=== PATIENT | male | born 1955 | race Caucasian/White ===

== ENCOUNTER 2017-02-10 11:11 | Inpatient (IN) | payer SELFPAY ==
[~2017-02-10] VITALS: Ht 182.9 cm; Wt 165.6 kg
[2017-02-10] MEDS ORDERED: PANTOPRAZOLE IV PUSH 40 MG VIAL. IVP ONE (12:45)
--- NOTE | 2017-02-10 12:51 | ED.ADGEN ---
Past Medical History Past Medical History: Anemia, COPD, Depression, Diabetes-Type II, GERD, Hypertension, Other Additional Past Medical Histor: lymphedema Past Surgical History: Knee Replacement, Other Additional Past Surgical Histo: L rotator cuff, L wrist x2, L knee Alcohol Use: None Drug Use: None Adult General Chief Complaint Chief Complaint: GI PROBLEM HPI HPI Patient is a 61 year old man, history of hypertension, diabetes mellitus, morbid obesity, COPD, GERD, hemorrhoids, who presents to the emergency department with a report of coffee-ground emesis and blood in stool. Patient states had 3 episodes of vomiting today, which appeared coffee ground-like in nature, and patient was sent to the ED for evaluation. He states he has never had coffee-ground emesis or any upper GI bleeding as far as he is aware although he does have a history of ulcers for previous evaluation. Patient states that he had hemorrhoid surgery 3 years ago, and occasionally will note blood in his stool. He states there is blood in his stool currently, he describes it is a dark red color, denies any black or tarry stools. Patient states he is experiencing some epigastric pain, denies any nausea currently, any chest pain or shortness of breath, any fevers or chills, any weakness numbness or tingling, any lightheadedness or dizziness. No injuries. Review of Systems Review of Systems Constitutional: Denies fever or chills. [] Eyes: Denies change in visual acuity. [] HENT: Denies nasal congestion or sore throat. [] Respiratory: Denies cough or shortness of breath. [] Cardiovascular: Denies chest pain or edema. [] GI: Epigastric abdominal pain, with vomiting, dark coffee ground emesis 3 this morning, dark red blood in stool. : Denies dysuria. [] Musculoskeletal: Denies back pain or joint pain. [] Integument: Denies rash. [] Neurologic: Denies headache, focal weakness or sensory changes. [] Endocrine: Denies polyuria or polydipsia. [] Lymphatic: Denies swollen glands. [] Psychiatric: Denies depression or anxiety. [] Current Medications Current Medications Current Medications Medications (Trade) Dose Ordered Sig/Stephen Start Time Stop Time Status Last Admin Dose Admin Ceftriaxone Sodium (Rocephin 1gm Ivpb For Omni) 50 ml @ 100 mls/hr 1X ONCE 02/10/17 15:00 02/10/17 15:29 DC 02/10/17 16:06 100 MLS/HR Info 1 each 1 each PRN DAILY PRN 02/10/17 14:00 02/12/17 13:59 Iohexol (Omnipaque 300 Mg/ml) 75 ml 1X ONCE 02/10/17 14:00 02/10/17 14:01 DC 02/10/17 14:11 75 ML Octreotide Acetate 100 mcg 100 mcg 1X ONCE 02/10/17 15:00 02/10/17 15:10 DC 02/10/17 16:34 100 MCG Octreotide Acetate/Sodium Chloride (Sandostatin/Iv Sodium Chloride 0.9% 100ml) 101 ml @ 0 mls/hr CONT PRN 02/10/17 15:00 02/10/17 16:40 5 MLS/HR Pantoprazole Sodium (Protonix Vial) 80 mg 1X ONCE 02/10/17 12:45 02/10/17 12:46 DC 02/10/17 13:43 80 MG Pantoprazole Sodium/Sodium Chloride (Protonix Iv/Iv Sodium Chloride 0.9% 100ml) 100 ml @ 10 mls/hr Q10H 02/10/17 12:45 02/10/17 13:43 10 MLS/HR Allergies Allergies Allergies Coded Allergies Type Severity Reaction Last Updated Verified codeine Allergy Intermediate Hives 02/10/17 Yes Physical Exam Physical Exam Constitutional: Well developed, well nourished, no acute distress, non-toxic appearance. Nasal cannula in place. [] HENT: Normocephalic, atraumatic, bilateral external ears normal, oropharynx moist, no oral exudates, nose normal. [] Eyes: PERRLA, EOMI, conjunctiva normal, no discharge. [] Neck: Normal range of motion, no tenderness, supple, no stridor. [] Cardiovascular:Heart rate regular rhythm, no murmur, S1, S2, no rubs or gallops. [] Lungs & Thorax: Diminished breath sounds at bases bilaterally, examination limited secondary to body habitus., no wheezing [, rhonchi or rales identified. No chest or crepitus or tenderness.] Abdomen: Bowel sounds normal, obese, soft, mild tenderness all patient in the epigastric region, no rebound, rigidity, no guarding,, no masses, no pulsatile masses. [] Skin: Warm, dry, no erythema, no rash. [] Back: No tenderness, no CVA tenderness. [] Extremities: No tenderness, no cyanosis, no clubbing, ROM intact, no edema. Negative Homans sign. [] Neurologic: Alert and oriented X 3, normal motor function, normal sensory function, no focal deficits noted. [] Psychologic: Affect normal, judgement normal, mood normal. [] Rectal examination: Patient noted to have external hemorrhoids, dark red blood noted at rectum, and no evidence of active bleeding, no masses palpated, patient with large amount of dark red blood on glove after internal examination. No lesions or Current Patient Data Vital Signs Vital Signs Date Time Temp Pulse Resp B/P Pulse Ox O2 Delivery O2 Flow Rate FiO2 02/10/17 14:48 78 112/65 96 Nasal Cannula 4 02/10/17 11:20 97.9 17 97.9 Lab Values Laboratory Tests Test 02/10/17 12:40 02/10/17 13:18 Stool Occult Blood Positive (NEG) White Blood Count 7.9x10^3/uL (4.0-11.0) Red Blood Count 3.57x10^6/uL (4.30-5.70) L Hemoglobin 12.6g/dL (13.0-17.5) L Hematocrit 36.3% (39.0-53.0) L Mean Corpuscular Volume 102fL (79-100) H Mean Corpuscular Hemoglobin 35pg (25-35) Mean Corpuscular Hemoglobin Concent 35g/dL (31-37) Red Cell Distribution Width 14.6% (11.5-14.5) H Platelet Count 176x10^3/uL (140-400) Neutrophils (%) (Auto) 56% (31-73) Lymphocytes (%) (Auto) 31% (24-48) Monocytes (%) (Auto) 11% (0-9) H Eosinophils (%) (Auto) 1% (0-3) Basophils (%) (Auto) 1% (0-3) Neutrophils # (Auto) 4.4x10^3uL (1.8-7.7) Lymphocytes # (Auto) 2.4x10^3/uL (1.0-4.8) Monocytes # (Auto) 0.9x10^3/uL (0.0-1.1) Eosinophils # (Auto) 0.1x10^3/uL (0.0-0.7) Basophils # (Auto) 0.1x10^3/uL (0.0-0.2) Prothrombin Time 16.9SEC (11.7-14.0) H Prothrombin Time INR 1.5 (0.8-1.1) H PTT 36SEC (24-38) Sodium Level 141mmol/L (136-145) Potassium Level 5.1mmol/L (3.5-5.1) Chloride Level 103mmol/L (98-107) Carbon Dioxide Level 34mmol/L (21-32) H Anion Gap 4 (6-14) L Blood Urea Nitrogen 13mg/dL (8-26) Creatinine 0.7mg/dL (0.7-1.3) Estimated GFR (Cockcroft-Gault) 114.3 BUN/Creatinine Ratio 19 (6-20) Glucose Level 123mg/dL (70-99) H Lactic Acid Level 2.3mmol/L (0.4-2.0) H Calcium Level 8.5mg/dL (8.5-10.1) Total Bilirubin 1.8mg/dL (0.2-1.0) H Aspartate Amino Transferase (AST) 85U/L (15-37) H Alanine Aminotransferase (ALT) 52U/L (16-63) Alkaline Phosphatase 292U/L (46-116) H Troponin I Quantitative 0.018ng/mL (0.000-0.055) Total Protein 6.9g/dL (6.4-8.2) Albumin 2.4g/dL (3.4-5.0) L Albumin/Globulin Ratio 0.5 (1.0-1.7) L Laboratory Tests 02/10/17 13:18 Laboratory Tests 02/10/17 13:18 EKG EKG EC: Sinus rhythm, heart rate 83 beats/minute, left axis deviation, left anterior fascicular block with a right bundle-branch block noted, contour abnormalities noted in the anterior septal leads, QTc of 424, OH of 144, QRS of 132, abnormal ECG as stated, does not meet STEMI criteria. As interpreted by me. Radiology/Procedures Radiology/Procedures [] [facility] [address] [place] [address] IMAGING REPORT Signed PATIENT: GRIS RESENDIZ ACCOUNT: [id number] : 1955 LOCATION: ER AGE: 61 SEX: M EXAM STATUS: REG ER ORD. PHYSICIAN: KAT HUTSON DO REASON: Vomiting PROCEDURE: CHEST AP ONLY AP portable chest radiograph 02/10/2017 Clinical History: Unexplained vomiting. An AP portable erect digital radiograph of the chest was obtained. No previous studies are available for comparison. The cardiac silhouette is mild to moderately enlarged. The thoracic aorta is tortuous. Prominence of the pulmonary vasculature is seen suggesting mild CHF. Linear bands of subsegmental atelectasis are seen involving the right lung. No pneumothorax or large pleural effusion is seen. Degenerative changes are seen involving the thoracic spine and the right shoulder. Impression: Findings are seen suggesting mild CHF. DICTATED and SIGNED BY: NITHIN MONROY MD DATE: 02/10/17 1303 CC: KAT HUTSON DO; SOLOMON BARAJAS MD ~ Impressions: [address] [address] IMAGING REPORT Signed PATIENT: GRIS RESENDIZ ACCOUNT: [id number] : 1955 LOCATION: ER AGE: 61 SEX: M EXAM STATUS: REG ER ORD. PHYSICIAN: KAT HUTSON DO REASON: abd pain/coffee ground emesis PROCEDURE: CT ABD PELV W/ IV CONTRST ONLY CT of the abdomen and pelvis with contrast, 02/10/2017: History: Abdominal pain, coffee-ground emesis Multidetector CT imaging was performed following an IV bolus injection of iodinated contrast material. No oral contrast material was administered for this study. There is a small amount of right-sided pleural fluid. There is moderate underlying atelectasis posteriorly in the right lower lobe. There is minimal atelectasis in the posterior costophrenic angle on the left. There are minimal patchy groundglass opacities in the lung bases possibly representing mild pulmonary edema. Coronary artery calcifications are present. The hepatic margins are irregular raising the possibility of cirrhosis. No hepatic mass is seen. The gallbladder is unremarkable. No pancreatic mass is evident. The spleen is at the upper limits of normal in size measuring 15.9 cm in length. There is mild bilateral renal cortical scarring. The kidneys show no evidence of obstruction. The left adrenal gland is enlarged measuring 5 cm in greatest dimension. It is of medium density on these postcontrast scans, similar to the right adrenal gland. There is moderate aortoiliac calcific plaquing without evidence of aneurysm. No abdominal or pelvic adenopathy is seen. There is a small amount of free fluid in the abdomen and pelvis. Fluid extends into a left inguinal hernia. No bowel herniation is evident. Fluid and streaky edema in the mesentery is most prominent in the right paracolic gutter region, probably due to patient positioning. The bowel loops are not dilated. No free air is evident in the abdomen or pelvis. IMPRESSION: 1. Small volume of ascites. 2. Mild hepatic contour irregularity suggesting cirrhosis. 3. Borderline splenomegaly. 4. Nonspecific left adrenal enlargement. 5. Left inguinal hernia containing ascites with no current bowel herniation. 6. Small right pleural effusion with moderate right lower lobe atelectasis. 7. Coronary artery disease. PQRS Compliance Statement: One or more of the following individualized dose reduction techniques were utilized for this examination: 1. Automated exposure control 2. Adjustment of the mA and/or kV according to patient size 3. Use of iterative reconstruction technique DICTATED and SIGNED BY: NIKOLAI GARAY MD DATE: 02/10/17 6647 CC: KAT HUTSON DO; SOLOMON BARAJAS MD ~ Course & Med Decision Making Course & Med Decision Making Pertinent Labs and Imaging studies reviewed. (See chart for details) Patient with no further vomiting in the emergency department, hemoglobin of 12.6 , platelet count of 176, patient's heart rate is in the 70s, blood pressure 120s over 80s, no indication for transfusion at this time. Patient initiated on Protonix bolus of Protonix drip, after CT revealed evidence of cirrhosis, patient also received octreotide bolus of octreotide drip, free fluid noted, most consistent with ascites, no evidence of free air or bowel abnormality, findings were discussed with Dr. Liriano of general surgery who will review imaging. Findings as above discussed with Dr. Lane of GI, although patient is a limited historian, and denied any history of cirrhosis, findings on CT with GI bleeding concern for possible variceal bleeding, patient as stated has protonic and octreotide infusing, will continue at this time, patient be evaluated by Dr. Lane. Findings as above discussed with Dr. Gutierrez of internal medicine, accepted to his service as a full admission to the medical telemetry floor, consultations as stated, bridge orders entered per discussion. Dragon Disclaimer Dragon Disclaimer This electronic medical record was generated, in whole or in part, using a voice recognition dictation system. Departure Impression: Primary Impression: GI bleed Disposition: ADMITTED INPATIENT Admitting Physician: Juan Carlos Gutierrez Condition: IMPROVED KAT HUTSON DO Feb 10, 2017 12:51
--- NOTE | 2017-02-10 13:08 | RAD ---
AP portable chest radiograph 02/10/2017 Clinical History: Unexplained vomiting. An AP portable erect digital radiograph of the chest was obtained. No previous studies are available for comparison. The cardiac silhouette is mild to moderately enlarged. The thoracic aorta is tortuous. Prominence of the pulmonary vasculature is seen suggesting mild CHF. Linear bands of subsegmental atelectasis are seen involving the right lung. No pneumothorax or large pleural effusion is seen. Degenerative changes are seen involving the thoracic spine and the right shoulder. Impression: Findings are seen suggesting mild CHF.
[2017-02-10 13:11] LABS: NEG OBC FOB NEG; POS OBC FOB POS
[2017-02-10 13:32] LABS: BASO # 0.1 x10^3/uL (0.0-0.2); BASO % 1 % (0-3); EOS % 1 % (0-3); HEMATOCRIT 36.3 % (39.0-53.0); HEMOGLOBIN 12.6 g/dL (13.0-17.5); LYMPH # 2.4 x10^3/uL (1.0-4.8); LYMPH % 31 % (24-48); MEAN CORPUSCULAR HEMOGLOBIN 35 pg (25-35); MEAN CORPUSCULAR HGB CONC 35 g/dL (31-37); MEAN CORPUSCULAR VOLUME 102 fL (79-100); MONO % 11 % (0-9); NEUT % 56 % (31-73); PLATELET COUNT 176 x10^3/uL (140-400); RED BLOOD COUNT 3.57 x10^6/uL (4.30-5.70); RED CELL DISTRIBUTION WIDTH 14.6 % (11.5-14.5); WHITE BLOOD COUNT 7.9 x10^3/uL (4.0-11.0)
[2017-02-10] MEDS: PANTOPRAZOLE SODIUM IV 80 MG in IV NORMAL SALINE 100ML 100 ML IV SCH ×2 (13:43→22:45)
[2017-02-10 13:46] LABS: CALCIUM 8.5 mg/dL (8.5-10.1); CREATININE 0.7 mg/dL (0.7-1.3); GFR 114.3; POTASSIUM 5.1 mmol/L (3.5-5.1)
[2017-02-10 13:49] LABS: INR 1.5 (0.8-1.1); PROTHROMBIN TIME PATIENT 16.9 SEC (11.7-14.0)
[2017-02-10 13:59] LABS: ALBUMIN 2.4 g/dL (3.4-5.0); ALBUMIN/GLOBULIN RATIO 0.5 (1.0-1.7); TOTAL BILIRUBIN 1.8 mg/dL (0.2-1.0); TOTAL PROTEIN 6.9 g/dL (6.4-8.2)
[2017-02-10] MEDS ORDERED: CONTRAST GIVEN MC PRN (14:00)
[2017-02-10] MEDS ORDERED: IOHEXOL 300 MG/ML 75 ML VIAL IV ONE (14:00)
--- NOTE | 2017-02-10 14:50 | RAD ---
CT of the abdomen and pelvis with contrast, 02/10/2017: History: Abdominal pain, coffee-ground emesis Multidetector CT imaging was performed following an IV bolus injection of iodinated contrast material. No oral contrast material was administered for this study. There is a small amount of right-sided pleural fluid. There is moderate underlying atelectasis posteriorly in the right lower lobe. There is minimal atelectasis in the posterior costophrenic angle on the left. There are minimal patchy groundglass opacities in the lung bases possibly representing mild pulmonary edema. Coronary artery calcifications are present. The hepatic margins are irregular raising the possibility of cirrhosis. No hepatic mass is seen. The gallbladder is unremarkable. No pancreatic mass is evident. The spleen is at the upper limits of normal in size measuring 15.9 cm in length. There is mild bilateral renal cortical scarring. The kidneys show no evidence of obstruction. The left adrenal gland is enlarged measuring 5 cm in greatest dimension. It is of medium density on these postcontrast scans, similar to the right adrenal gland. There is moderate aortoiliac calcific plaquing without evidence of aneurysm. No abdominal or pelvic adenopathy is seen. There is a small amount of free fluid in the abdomen and pelvis. Fluid extends into a left inguinal hernia. No bowel herniation is evident. Fluid and streaky edema in the mesentery is most prominent in the right paracolic gutter region, probably due to patient positioning. The bowel loops are not dilated. No free air is evident in the abdomen or pelvis. IMPRESSION: 1. Small volume of ascites. 2. Mild hepatic contour irregularity suggesting cirrhosis. 3. Borderline splenomegaly. 4. Nonspecific left adrenal enlargement. 5. Left inguinal hernia containing ascites with no current bowel herniation. 6. Small right pleural effusion with moderate right lower lobe atelectasis. 7. Coronary artery disease. PQRS Compliance Statement: One or more of the following individualized dose reduction techniques were utilized for this examination: 1. Automated exposure control 2. Adjustment of the mA and/or kV according to patient size 3. Use of iterative reconstruction technique
[2017-02-10] MEDS ORDERED: OCTREOTIDE 100 MCG/ML VIAL IV ONE (15:00)
[2017-02-10] MEDS ORDERED: CEFTRIAXONE 1GM IVPB FOR OMNI 50 ML IV ONE (15:00)
[2017-02-10] MEDS ORDERED: OCTREOTIDE 500 MCG in IV NORMAL SALINE 100ML 100 ML IV PRN (15:00)
--- NOTE | 2017-02-10 15:00 | EKG ---
[facility] [address] [place] [address] Test Date: 2017-02-10 Test Time: 13:40:26 Pat Name: GRIS RESENDIZ Department: Room: Gender: M Maintenance Engineer: : 1955 Requested By: KAT HUTSON Order Number: [id number] Reading MD: Measurements Intervals [place] Rate: 83 P: 0 MT: 144 QRS: -56 QRSD: 132 T: -4 QT: 360 QTc: 424 Interpretive Statements SINUS RHYTHM ABNORMAL LEFT AXIS DEVIATION LEFT ANTERIOR FASCICULAR BLOCK RIGHT BUNDLE BRANCH BLOCK BIFASCICULAR BLOCK RVH WITH REPOLARIZATION ABNORMALITY QRS(T) CONTOUR ABNORMALITY CONSIDER ANTEROSEPTAL MYOCARDIAL DAMAGE RI6.01 No previous ECG available for comparison
[2017-02-10] MEDS ORDERED: DEXTROSE 50% 25 GM / 50ML DISP.SYRIN. IV PRN (15:45)
[2017-02-10] MEDS ORDERED: FENTANYL PF 100 MCG/2 ML VIAL. IV PRN (15:45)
[2017-02-10] MEDS ORDERED: ONDANSETRON PF 4 MG/2 ML VIAL. IV PRN (15:45)
[2017-02-10] MEDS: IPRATRPIUM/ALBUTEROL 0.5/2.5MG 3 ML NEBU. NEB SCH ×2 (16:00→20:00)
--- NOTE | 2017-02-10 16:56 | ACF ---
Admission Forms Criteria GASTROINTESTINAL BLEEDING Clinical Indications for Inpatient Care (Place 'X' for any and all applicable criteria): Ongoing inpatient care may be indicated for gastrointestinal bleeding with ANY ONE of the following (4)(20)(21)(22)(23)(24): [X]I. Active bleeding (eg, fresh voluminous blood in emesis or nasogastric aspirate, or per rectum) [ ]II. Hemodynamic instability [ ]III. Anticoagulation therapy or coagulopathy ((eg, advanced liver disease, irreversible anticoagulation) [ ]IV. Ischemic colitis (22) [ ]V. Endoscopy showing arterial bleeding, adherent clot, nonbleeding visible vessel, varices, flat red spots, ulcer size greater than 2 cm, or portal hypertensive gastropathy [ ]. High-risk low platelet count [ ]VII. Anemia requiring inpatient care as indicated by ANY ONE of the following a)[ ] Cognitive impairment b)[ ] Syncope c)[ ] Heart failure d)[ ] Chest pain e)[ ] Dyspnea f)[ ] Other findings suggesting inadequate perfusion (eg, peripheral or myocardial ischemia, end organ dysfunction) [ ]VIII. High-risk low platelet count [X]IX. Suspected variceal cause of bleeding as indicated by ANY ONE of the following(27)(28): a)[ ] Known varices b)[ ] Hepatomegaly or splenomegaly c)[X] Ascites d)[ ] Jaundice or scleral icterus e)[ ] History of liver disease (eg, cirrhosis) f)[ ] Physical findings of portal hypertension (eg, caput medusa) g)[ ] Comorbid disorder indicating risk for portal vein thrombosis (eg , abdominal surgery, sepsis, shock, exchange transfusion, prior umbilical vein catheterization) Extended stay may be needed until ALL of the following are present(20)(38)(47): [ ]a) Hemodynamic stability [ ]b) No evidence of active bleeding (eg, stable Hematocrit) [ ]c) Platelet count, prothrombin time, and partial thromboplastin time acceptable for next level of care [ ]d) Surgical or other acute intervention not needed [ ]e) Oral hydration and diet tolerated The original [facility] content created by Raina Nguyen has been revised. The portions of the content which have been revised are identified through the use of italic text or in bold, and Raina Nguyen has neither reviewed nor approved the modified material. All other unmodified content is copyright [facility]. Please see references footnoted in the original [facility] edition 2016 Admission Criteria Met?: Yes NILS BOWMAN Feb 10, 2017 16:56
[2017-02-10] MEDS: INSULIN ASPART 300 UNITS/3 ML INSULN.PEN SQ SCH (17:00)
--- NOTE | 2017-02-10 18:08 | PDOC ---
G I PROGRESS NOTE Reason for Follow-up Coffee ground emesis Subjective Nauseated Physical Exam Lungs decreased BS CV S1 S2 ABD +BS, soft, nontender Review of Relevant I have reviewed the following items sandie (where applicable) has been applied. Labs Laboratory Tests Test 02/10/17 12:40 02/10/17 13:18 02/10/17 16:00 Stool Occult Blood Positive (NEG) White Blood Count 7.9x10^3/uL (4.0-11.0) Red Blood Count 3.57x10^6/uL (4.30-5.70) Hemoglobin 12.6g/dL (13.0-17.5) Hematocrit 36.3% (39.0-53.0) Mean Corpuscular Volume 102fL (79-100) Mean Corpuscular Hemoglobin 35pg (25-35) Mean Corpuscular Hemoglobin Concent 35g/dL (31-37) Red Cell Distribution Width 14.6% (11.5-14.5) Platelet Count 176x10^3/uL (140-400) Neutrophils (%) (Auto) 56% (31-73) Lymphocytes (%) (Auto) 31% (24-48) Monocytes (%) (Auto) 11% (0-9) Eosinophils (%) (Auto) 1% (0-3) Basophils (%) (Auto) 1% (0-3) Neutrophils # (Auto) 4.4x10^3uL (1.8-7.7) Lymphocytes # (Auto) 2.4x10^3/uL (1.0-4.8) Monocytes # (Auto) 0.9x10^3/uL (0.0-1.1) Eosinophils # (Auto) 0.1x10^3/uL (0.0-0.7) Basophils # (Auto) 0.1x10^3/uL (0.0-0.2) Prothrombin Time 16.9SEC (11.7-14.0) Prothromb Time International Ratio 1.5 (0.8-1.1) Activated Partial Thromboplast Time 36SEC (24-38) Sodium Level 141mmol/L (136-145) Potassium Level 5.1mmol/L (3.5-5.1) Chloride Level 103mmol/L (98-107) Carbon Dioxide Level 34mmol/L (21-32) Anion Gap 4 (6-14) Blood Urea Nitrogen 13mg/dL (8-26) Creatinine 0.7mg/dL (0.7-1.3) Estimated GFR (Cockcroft-Gault) 114.3 BUN/Creatinine Ratio 19 (6-20) Glucose Level 123mg/dL (70-99) Lactic Acid Level 2.3mmol/L (0.4-2.0) 2.3mmol/L (0.4-2.0) Calcium Level 8.5mg/dL (8.5-10.1) Total Bilirubin 1.8mg/dL (0.2-1.0) Aspartate Amino Transf (AST/SGOT) 85U/L (15-37) Alanine Aminotransferase (ALT/SGPT) 52U/L (16-63) Alkaline Phosphatase 292U/L (46-116) Troponin I Quantitative 0.018ng/mL (0.000-0.055) Total Protein 6.9g/dL (6.4-8.2) Albumin 2.4g/dL (3.4-5.0) Albumin/Globulin Ratio 0.5 (1.0-1.7) Laboratory Tests Test 02/10/17 12:40 02/10/17 13:18 02/10/17 16:00 Stool Occult Blood Positive (NEG) White Blood Count 7.9x10^3/uL (4.0-11.0) Red Blood Count 3.57x10^6/uL (4.30-5.70) Hemoglobin 12.6g/dL (13.0-17.5) Hematocrit 36.3% (39.0-53.0) Mean Corpuscular Volume 102fL (79-100) Mean Corpuscular Hemoglobin 35pg (25-35) Mean Corpuscular Hemoglobin Concent 35g/dL (31-37) Red Cell Distribution Width 14.6% (11.5-14.5) Platelet Count 176x10^3/uL (140-400) Neutrophils (%) (Auto) 56% (31-73) Lymphocytes (%) (Auto) 31% (24-48) Monocytes (%) (Auto) 11% (0-9) Eosinophils (%) (Auto) 1% (0-3) Basophils (%) (Auto) 1% (0-3) Neutrophils # (Auto) 4.4x10^3uL (1.8-7.7) Lymphocytes # (Auto) 2.4x10^3/uL (1.0-4.8) Monocytes # (Auto) 0.9x10^3/uL (0.0-1.1) Eosinophils # (Auto) 0.1x10^3/uL (0.0-0.7) Basophils # (Auto) 0.1x10^3/uL (0.0-0.2) Prothrombin Time 16.9SEC (11.7-14.0) Prothromb Time International Ratio 1.5 (0.8-1.1) Activated Partial Thromboplast Time 36SEC (24-38) Sodium Level 141mmol/L (136-145) Potassium Level 5.1mmol/L (3.5-5.1) Chloride Level 103mmol/L (98-107) Carbon Dioxide Level 34mmol/L (21-32) Anion Gap 4 (6-14) Blood Urea Nitrogen 13mg/dL (8-26) Creatinine 0.7mg/dL (0.7-1.3) Estimated GFR (Cockcroft-Gault) 114.3 BUN/Creatinine Ratio 19 (6-20) Glucose Level 123mg/dL (70-99) Lactic Acid Level 2.3mmol/L (0.4-2.0) 2.3mmol/L (0.4-2.0) Calcium Level 8.5mg/dL (8.5-10.1) Total Bilirubin 1.8mg/dL (0.2-1.0) Aspartate Amino Transf (AST/SGOT) 85U/L (15-37) Alanine Aminotransferase (ALT/SGPT) 52U/L (16-63) Alkaline Phosphatase 292U/L (46-116) Troponin I Quantitative 0.018ng/mL (0.000-0.055) Total Protein 6.9g/dL (6.4-8.2) Albumin 2.4g/dL (3.4-5.0) Albumin/Globulin Ratio 0.5 (1.0-1.7) Medications Current Medications Pantoprazole Sodium/Sodium Chloride (Protonix Iv/Iv Sodium Chloride 0.9% 100ml) 100 ml @ 10 mls/hr Q10H IV Last administered on 02/10/17 13:43; Start at 12:45 Pantoprazole Sodium (Protonix Vial) 80 mg 1X ONCE IVP Last administered on 13:43; Start 02/10/17 at 12:45; Stop 02/10/17 at 12:46; Status DC Iohexol (Omnipaque 300 Mg/ml) 75 ml 1X ONCE IV Last administered on 02/10/17 14:11; Start 02/10/17 at 14:00; Stop 02/10/17 at 14:01; Status DC Info 1 each 1 each PRN DAILY PRN MC SEE COMMENTS; Start 02/10/17 at 14:00; Stop 02/12/17 at 13:59 Octreotide Acetate/Sodium Chloride (Sandostatin/Iv Sodium Chloride 0.9% 100ml) 101 ml @ 0 mls/hr CONT PRN IV SEE I/O RECORD Last administered on 02/10/17 16: 40; Start 02/10/17 at 15:00 Octreotide Acetate 100 mcg 100 mcg 1X ONCE IV Last administered on 02/10/17 16:34; Start 02/10/17 at 15:00; Stop 02/10/17 at 15:10; Status DC Ceftriaxone Sodium (Rocephin 1gm Ivpb For Omni) 50 ml @ 100 mls/hr 1X ONCE IV Last administered on 02/10/17 16:06; Start 02/10/17 at 15:00; Stop 02/10/17 at 15:29; Status DC Ondansetron HCl (Zofran) 4 mg PRN Q8HRS PRN IV NAUSEA/VOMITING; Start 02/10/17 at 15:45; Stop 02/11/17 at 15:44 Fentanyl Citrate (Fentanyl 2ml Vial) 50 mcg PRN Q1HR PRN IV PAIN; Start at 15:45; Stop 02/11/17 at 15:44 Albuterol/ Ipratropium (Duoneb) 3 ml RTQID NEB ; Start 02/10/17 at 16:00; Stop 02/11/17 at 15:59 Insulin Aspart (Novolog) 0-5 UNITS TIDWMEALS SQ ; Start 02/10/17 at 17:00 Dextrose (Dextrose 50%-Water Syringe) 12.5 gm PRN Q15MIN PRN IV SEE COMMENTS; Start 02/10/17 at 15:45 Vitals/I & O Vital Sign - Last 24 Hours 02/10/17 02/10/17 02/10/17 02/10/17 11:20 11:54 12:34 12:54 Temp 97.9 97.9 Pulse 82 80 88 88 Resp 17 B/P 124/59 113/55 121/55 122/78 Pulse Ox 95 100 96 97 O2 Delivery Nasal Cannula Nasal Cannula Nasal Cannula Nasal Cannula O2 Flow Rate 4 4 4 4 02/10/17 02/10/17 02/10/17 02/10/17 13:24 13:54 14:18 14:48 Pulse 82 80 85 78 B/P 131/74 122/65 106/53 112/65 Pulse Ox 95 96 96 O2 Delivery Nasal Cannula Nasal Cannula Nasal Cannula O2 Flow Rate 4 4 4 02/10/17 02/10/17 02/10/17 02/10/17 15:18 15:48 16:18 16:35 Pulse 78 80 84 84 B/P 123/64 136/67 156/70 135/63 Pulse Ox 96 96 97 96 O2 Delivery Nasal Cannula Nasal Cannula Nasal Cannula Nasal Cannula O2 Flow Rate 4 4 4 4 Problem List Problems Medical Problems: (1) GI bleed Status: Acute Assessment Hematemesis- etiology to be determined. Differential includes: MW tear, PUD, varices, and/or malignancy. Plan serial cbcs transfusional support PPI therapy EGD in am to further assess. Risks and benefits discussed with patient who is willing to proceed. BLANCA FRANCO MD Feb 10, 2017 18:08
[2017-02-10 18:14] VITALS: BP 122/56
[2017-02-10 19:00] VITALS: BP 124/58
--- NOTE | 2017-02-10 22:19 | HP ---
ADMIT DATE: 02/10/2017 CHIEF COMPLAINT: Nausea, vomiting, hematemesis, hematochezia. HISTORY OF PRESENT ILLNESS: The patient is a pleasant 61-year-old male who resides at a group home. He has cirrhosis, states he used to drink a lot of whiskey and everything else he could get his hands on. Today, he presented with coffee ground emesis and blood in his stool and a CAT scan is showing cirrhosis. I suspect he might have esophageal varices with portal hypertension. I have discussed the case with the ER doctor. We are going to go ahead and admit the patient and consult GI. PAST MEDICAL HISTORY: Cirrhosis, previous alcohol abuse, anemia, COPD, depression, diabetes, GERD, hypertension, lymphoma, knee replacement, left rotator cuff, wrist surgery, knee surgery. ALLERGIES: CODEINE. FAMILY HISTORY: Hypertension. SOCIAL HISTORY: He quit drinking, but used to drink heavily. He quit smoking, but used to smoke heavily. No drugs. MEDICATIONS: Reviewed, please refer to the MRAD. REVIEW OF SYSTEMS: GENERAL: No history of weight change, weakness or fevers. SKIN: No bruising, hair changes or rashes. EYES: No blurred, double or loss of vision. NOSE AND THROAT: No history of nosebleeds, hoarseness or sore throat. HEART: No history of palpitations, chest pain or shortness of breath on exertion. LUNGS: Denies cough, hemoptysis, wheezing or shortness of breath. GASTROINTESTINAL: He complains of nausea. GENITOURINARY: No history of frequency, urgency, hesitancy or nocturia. NEUROLOGIC: Denies history of numbness, tingling, tremor or weakness. PSYCHIATRIC: No history of panic, anxiety or depression. ENDOCRINE: No history of heat or cold intolerance, polyuria or polydipsia. EXTREMITIES: Denies muscle weakness, joint pain, pain on walking or stiffness. PHYSICAL EXAMINATION: VITAL SIGNS: Temperature afebrile, pulse 67, respirations 20, blood pressure 144/92. GENERAL: He is alert, cooperative. HEART: Normal S1, S2. LUNGS: Clear. ABDOMEN: Soft. Decreased bowel sounds, tender. EXTREMITIES: 1+ edema. SKIN: Dry with some excoriations. ENDOCRINE: No thyromegaly. LYMPHATICS: No cervical nodes. HEMATOPOIETIC: No bruising. LABORATORY DATA: White count 8, hemoglobin 12, platelets 176. Electrolytes: Sodium 141, potassium 5.1, chloride 103, bicarbonate 34, BUN 13, creatinine , glucose 123. Troponin 0.018. Alkaline phosphatase 292, AST 85, ALT . ASSESSMENT AND PLAN: Gastrointestinal bleed. I suspect he has cirrhosis from his alcoholism with secondary esophageal varices from portal hypertension. The patient has been admitted. We will monitor his hemoglobin closely. Consult Dr. Lane. IV fluids, IV proton pump inhibitors. We will try to continue his home meds. PROGNOSIS: Guarded. ZHOU GARCIA DO DR: JEROME/vannessa JOB#: [id number] / [id number]
[2017-02-10 23:00] VITALS: BP 127/58
[2017-02-11 03:00] VITALS: BP_SYST 122; BP_SYST 126; BP_DIAS 63; BP_DIAS 71
[2017-02-11 04:48] LABS: BASO # 0.1 x10^3/uL (0.0-0.2); BASO % 1 % (0-3); EOS % 3 % (0-3); HEMATOCRIT 33.1 % (39.0-53.0); HEMOGLOBIN 10.9 g/dL (13.0-17.5); LYMPH # 2.7 x10^3/uL (1.0-4.8); LYMPH % 33 % (24-48); MEAN CORPUSCULAR HEMOGLOBIN 34 pg (25-35); MEAN CORPUSCULAR HGB CONC 33 g/dL (31-37); MEAN CORPUSCULAR VOLUME 105 fL (79-100); MONO % 17 % (0-9); NEUT % 47 % (31-73); PLATELET COUNT 160 x10^3/uL (140-400); RED BLOOD COUNT 3.16 x10^6/uL (4.30-5.70); RED CELL DISTRIBUTION WIDTH 14.7 % (11.5-14.5)
[2017-02-11 05:47] LABS: ALBUMIN 2.2 g/dL (3.4-5.0); ALBUMIN/GLOBULIN RATIO 0.6 (1.0-1.7); CALCIUM 8.5 mg/dL (8.5-10.1); CREATININE 0.7 mg/dL (0.7-1.3); GFR 114.3; POTASSIUM 5.3 mmol/L (3.5-5.1); TOTAL BILIRUBIN 1.7 mg/dL (0.2-1.0); TOTAL PROTEIN 6.1 g/dL (6.4-8.2)
[2017-02-11 07:00] VITALS: BP 126/62
[2017-02-11] MEDS: IPRATRPIUM/ALBUTEROL 0.5/2.5MG 3 ML NEBU. NEB SCH ×3 (07:49→15:19)
[2017-02-11] MEDS: INSULIN ASPART 300 UNITS/3 ML INSULN.PEN SQ SCH ×3 (08:00→17:00)
[2017-02-11] MEDS ORDERED: IV RINGERS,LACTATED 1000ML 1,000 ML IV ONE (10:45)
[2017-02-11] MEDS ORDERED: GLYCOPYRROLATE 1 MG/5 ML VIAL. ONE (11:01)
[2017-02-11] MEDS ORDERED: PROPOFOL 20 ML IV ONE (11:02)
[2017-02-11] MEDS ORDERED: LIDOCAINE 2% PF Vial for OR 5 ML VIAL. ONE (11:02)
--- NOTE | 2017-02-11 11:15 | PDOC4 ---
Operative Note Operative Note EGD Meds propofol per anesthesia Pre-op dx cirrhosis/hematemesis Post-op dx non-erosive gastritis Plan advance diet heme parameters ammonia level hepatitis serologies BLANCA FRANCO MD Feb 11, 2017 11:15
--- NOTE | 2017-02-11 13:56 | PDOC ---
PROGRESS NOTES Chief Complaint Chief Complaint cc: Coffee-ground emesis and blood in stool -CAD Hypertension -COPD -Oxygen use -GERD -DM -Anemia -Cirrhosis -Orthopedic surgeries -Pressure ulcers -Cirrhosis -Lymphoma History of Present Illness History of Present Illness Mr. Love is doing well today and is laying in bed comfortably. He describes having weakness for the past 2-3 days associated with his emesis and blood in his stools. He has very little appetite. He described how he would like to stay in the hospital for a few days. Vitals Vitals Vital Signs Date Time Temp Pulse Resp B/P Pulse Ox O2 Delivery O2 Flow Rate FiO2 02/11/17 12:09 97 Nasal Cannula 5.0 02/11/17 11:33 98.2 114 20 112/54 98.2 Physical Exam General: Alert, Cooperative Heart: Regular rate, Normal S1, Normal S2 Lungs: Clear, Other (No chest retractions) Abdomen: Soft, No tenderness Extremities: No clubbing, No cyanosis Skin: No rashes, No breakdown Labs LABS Laboratory Tests Test 02/10/17 16:00 02/10/17 17:45 02/10/17 21:30 02/11/17 04:05 Lactic Acid Level 2.3mmol/L (0.4-2.0) Hemoglobin 11.9g/dL (13.0-17.5) 10.9g/dL (13.0-17.5) Glucose (Fingerstick) 127mg/dL (70-99) White Blood Count 8.0x10^3/uL (4.0-11.0) Red Blood Count 3.16x10^6/uL (4.30-5.70) Hematocrit 33.1% (39.0-53.0) Mean Corpuscular Volume 105fL (79-100) Mean Corpuscular Hemoglobin 34pg (25-35) Mean Corpuscular Hemoglobin Concent 33g/dL (31-37) Red Cell Distribution Width 14.7% (11.5-14.5) Platelet Count 160x10^3/uL (140-400) Neutrophils (%) (Auto) 47% (31-73) Lymphocytes (%) (Auto) 33% (24-48) Monocytes (%) (Auto) 17% (0-9) Eosinophils (%) (Auto) 3% (0-3) Basophils (%) (Auto) 1% (0-3) Neutrophils # (Auto) 3.8x10^3uL (1.8-7.7) Lymphocytes # (Auto) 2.7x10^3/uL (1.0-4.8) Monocytes # (Auto) 1.3x10^3/uL (0.0-1.1) Eosinophils # (Auto) 0.2x10^3/uL (0.0-0.7) Basophils # (Auto) 0.1x10^3/uL (0.0-0.2) Sodium Level 141mmol/L (136-145) Potassium Level 5.3mmol/L (3.5-5.1) Chloride Level 104mmol/L (98-107) Carbon Dioxide Level 33mmol/L (21-32) Anion Gap 4 (6-14) Blood Urea Nitrogen 18mg/dL (8-26) Creatinine 0.7mg/dL (0.7-1.3) Estimated GFR (Cockcroft-Gault) 114.3 BUN/Creatinine Ratio 26 (6-20) Glucose Level 156mg/dL (70-99) Calcium Level 8.5mg/dL (8.5-10.1) Total Bilirubin 1.7mg/dL (0.2-1.0) Aspartate Amino Transf (AST/SGOT) 79U/L (15-37) Alanine Aminotransferase (ALT/SGPT) 44U/L (16-63) Alkaline Phosphatase 238U/L (46-116) Total Protein 6.1g/dL (6.4-8.2) Albumin 2.2g/dL (3.4-5.0) Albumin/Globulin Ratio 0.6 (1.0-1.7) Test 02/11/17 07:45 02/11/17 12:16 Glucose (Fingerstick) 150mg/dL (70-99) 163mg/dL (70-99) Review of Systems Review of Systems He does not report having any dizziness or lightheadedness. He has not had any more episodes of emesis while at the hospital. Assessment and Plan Assessmemt and Plan Problems Medical Problems: (1) GI bleed Status: Acute Assessment: Mr. Love is a 61 year old male that presented with coffee-ground emesis and blood in his stool. -CAD Hypertension -COPD -Oxygen use -GERD -DM -Anemia -Cirrhosis -Orthopedic surgeries -Pressure ulcers -Cirrhosis -Lymphoma Plan: 1. Pending results EGD 2. Continue breathing treatment 3. Consider PT/OT 4. Recheck labs 5. Appreciate consults from GI Problems: Comment Review of Relevant I have reviewed the following items sandie (where applicable) has been applied. Labs Laboratory Tests Test 02/10/17 12:40 02/10/17 13:18 02/10/17 16:00 02/10/17 17:45 Stool Occult Blood Positive (NEG) White Blood Count 7.9x10^3/uL (4.0-11.0) Red Blood Count 3.57x10^6/uL (4.30-5.70) Hemoglobin 12.6g/dL (13.0-17.5) 11.9g/dL (13.0-17.5) Hematocrit 36.3% (39.0-53.0) Mean Corpuscular Volume 102fL (79-100) Mean Corpuscular Hemoglobin 35pg (25-35) Mean Corpuscular Hemoglobin Concent 35g/dL (31-37) Red Cell Distribution Width 14.6% (11.5-14.5) Platelet Count 176x10^3/uL (140-400) Neutrophils (%) (Auto) 56% (31-73) Lymphocytes (%) (Auto) 31% (24-48) Monocytes (%) (Auto) 11% (0-9) Eosinophils (%) (Auto) 1% (0-3) Basophils (%) (Auto) 1% (0-3) Neutrophils # (Auto) 4.4x10^3uL (1.8-7.7) Lymphocytes # (Auto) 2.4x10^3/uL (1.0-4.8) Monocytes # (Auto) 0.9x10^3/uL (0.0-1.1) Eosinophils # (Auto) 0.1x10^3/uL (0.0-0.7) Basophils # (Auto) 0.1x10^3/uL (0.0-0.2) Prothrombin Time 16.9SEC (11.7-14.0) Prothromb Time International Ratio 1.5 (0.8-1.1) Activated Partial Thromboplast Time 36SEC (24-38) Sodium Level 141mmol/L (136-145) Potassium Level 5.1mmol/L (3.5-5.1) Chloride Level 103mmol/L (98-107) Carbon Dioxide Level 34mmol/L (21-32) Anion Gap 4 (6-14) Blood Urea Nitrogen 13mg/dL (8-26) Creatinine 0.7mg/dL (0.7-1.3) Estimated GFR (Cockcroft-Gault) 114.3 BUN/Creatinine Ratio 19 (6-20) Glucose Level 123mg/dL (70-99) Lactic Acid Level 2.3mmol/L (0.4-2.0) 2.3mmol/L (0.4-2.0) Calcium Level 8.5mg/dL (8.5-10.1) Total Bilirubin 1.8mg/dL (0.2-1.0) Aspartate Amino Transf (AST/SGOT) 85U/L (15-37) Alanine Aminotransferase (ALT/SGPT) 52U/L (16-63) Alkaline Phosphatase 292U/L (46-116) Troponin I Quantitative 0.018ng/mL (0.000-0.055) Total Protein 6.9g/dL (6.4-8.2) Albumin 2.4g/dL (3.4-5.0) Albumin/Globulin Ratio 0.5 (1.0-1.7) Test 02/10/17 21:30 02/11/17 04:05 02/11/17 07:45 02/11/17 12:16 Glucose (Fingerstick) 127mg/dL (70-99) 150mg/dL (70-99) 163mg/dL (70-99) White Blood Count 8.0x10^3/uL (4.0-11.0) Red Blood Count 3.16x10^6/uL (4.30-5.70) Hemoglobin 10.9g/dL (13.0-17.5) Hematocrit 33.1% (39.0-53.0) Mean Corpuscular Volume 105fL (79-100) Mean Corpuscular Hemoglobin 34pg (25-35) Mean Corpuscular Hemoglobin Concent 33g/dL (31-37) Red Cell Distribution Width 14.7% (11.5-14.5) Platelet Count 160x10^3/uL (140-400) Neutrophils (%) (Auto) 47% (31-73) Lymphocytes (%) (Auto) 33% (24-48) Monocytes (%) (Auto) 17% (0-9) Eosinophils (%) (Auto) 3% (0-3) Basophils (%) (Auto) 1% (0-3) Neutrophils # (Auto) 3.8x10^3uL (1.8-7.7) Lymphocytes # (Auto) 2.7x10^3/uL (1.0-4.8) Monocytes # (Auto) 1.3x10^3/uL (0.0-1.1) Eosinophils # (Auto) 0.2x10^3/uL (0.0-0.7) Basophils # (Auto) 0.1x10^3/uL (0.0-0.2) Sodium Level 141mmol/L (136-145) Potassium Level 5.3mmol/L (3.5-5.1) Chloride Level 104mmol/L (98-107) Carbon Dioxide Level 33mmol/L (21-32) Anion Gap 4 (6-14) Blood Urea Nitrogen 18mg/dL (8-26) Creatinine 0.7mg/dL (0.7-1.3) Estimated GFR (Cockcroft-Gault) 114.3 BUN/Creatinine Ratio 26 (6-20) Glucose Level 156mg/dL (70-99) Calcium Level 8.5mg/dL (8.5-10.1) Total Bilirubin 1.7mg/dL (0.2-1.0) Aspartate Amino Transf (AST/SGOT) 79U/L (15-37) Alanine Aminotransferase (ALT/SGPT) 44U/L (16-63) Alkaline Phosphatase 238U/L (46-116) Total Protein 6.1g/dL (6.4-8.2) Albumin 2.2g/dL (3.4-5.0) Albumin/Globulin Ratio 0.6 (1.0-1.7) Laboratory Tests Test 02/10/17 16:00 02/10/17 17:45 02/10/17 21:30 02/11/17 04:05 Lactic Acid Level 2.3mmol/L (0.4-2.0) Hemoglobin 11.9g/dL (13.0-17.5) 10.9g/dL (13.0-17.5) Glucose (Fingerstick) 127mg/dL (70-99) White Blood Count 8.0x10^3/uL (4.0-11.0) Red Blood Count 3.16x10^6/uL (4.30-5.70) Hematocrit 33.1% (39.0-53.0) Mean Corpuscular Volume 105fL (79-100) Mean Corpuscular Hemoglobin 34pg (25-35) Mean Corpuscular Hemoglobin Concent 33g/dL (31-37) Red Cell Distribution Width 14.7% (11.5-14.5) Platelet Count 160x10^3/uL (140-400) Neutrophils (%) (Auto) 47% (31-73) Lymphocytes (%) (Auto) 33% (24-48) Monocytes (%) (Auto) 17% (0-9) Eosinophils (%) (Auto) 3% (0-3) Basophils (%) (Auto) 1% (0-3) Neutrophils # (Auto) 3.8x10^3uL (1.8-7.7) Lymphocytes # (Auto) 2.7x10^3/uL (1.0-4.8) Monocytes # (Auto) 1.3x10^3/uL (0.0-1.1) Eosinophils # (Auto) 0.2x10^3/uL (0.0-0.7) Basophils # (Auto) 0.1x10^3/uL (0.0-0.2) Sodium Level 141mmol/L (136-145) Potassium Level 5.3mmol/L (3.5-5.1) Chloride Level 104mmol/L (98-107) Carbon Dioxide Level 33mmol/L (21-32) Anion Gap 4 (6-14) Blood Urea Nitrogen 18mg/dL (8-26) Creatinine 0.7mg/dL (0.7-1.3) Estimated GFR (Cockcroft-Gault) 114.3 BUN/Creatinine Ratio 26 (6-20) Glucose Level 156mg/dL (70-99) Calcium Level 8.5mg/dL (8.5-10.1) Total Bilirubin 1.7mg/dL (0.2-1.0) Aspartate Amino Transf (AST/SGOT) 79U/L (15-37) Alanine Aminotransferase (ALT/SGPT) 44U/L (16-63) Alkaline Phosphatase 238U/L (46-116) Total Protein 6.1g/dL (6.4-8.2) Albumin 2.2g/dL (3.4-5.0) Albumin/Globulin Ratio 0.6 (1.0-1.7) Test 02/11/17 07:45 02/11/17 12:16 Glucose (Fingerstick) 150mg/dL (70-99) 163mg/dL (70-99) Medications Current Medications Pantoprazole Sodium/Sodium Chloride (Protonix Iv/Iv Sodium Chloride 0.9% 100ml) 100 ml @ 10 mls/hr Q10H IV Last administered on 02/10/17 22:45; Start at 12:45; Stop 02/11/17 at 12:13; Status DC Pantoprazole Sodium (Protonix Vial) 80 mg 1X ONCE IVP Last administered on 13:43; Start 02/10/17 at 12:45; Stop 02/10/17 at 12:46; Status DC Iohexol (Omnipaque 300 Mg/ml) 75 ml 1X ONCE IV Last administered on 02/10/17 14:11; Start 02/10/17 at 14:00; Stop 02/10/17 at 14:01; Status DC Info 1 each 1 each PRN DAILY PRN MC SEE COMMENTS; Start 02/10/17 at 14:00; Stop 02/12/17 at 13:59 Octreotide Acetate/Sodium Chloride (Sandostatin/Iv Sodium Chloride 0.9% 100ml) 101 ml @ 0 mls/hr CONT PRN IV SEE I/O RECORD Last administered on 02/10/17 16: 40; Start 02/10/17 at 15:00; Stop 02/11/17 at 12:13; Status DC Octreotide Acetate 100 mcg 100 mcg 1X ONCE IV Last administered on 02/10/17 16:34; Start 02/10/17 at 15:00; Stop 02/10/17 at 15:10; Status DC Ceftriaxone Sodium (Rocephin 1gm Ivpb For Omni) 50 ml @ 100 mls/hr 1X ONCE IV Last administered on 02/10/17 16:06; Start 02/10/17 at 15:00; Stop 02/10/17 at 15:29; Status DC Ondansetron HCl (Zofran) 4 mg PRN Q8HRS PRN IV NAUSEA/VOMITING; Start 02/10/17 at 15:45; Stop 02/11/17 at 15:44 Fentanyl Citrate (Fentanyl 2ml Vial) 50 mcg PRN Q1HR PRN IV PAIN; Start at 15:45; Stop 02/11/17 at 15:44 Albuterol/ Ipratropium (Duoneb) 3 ml RTQID NEB Last administered on 02/11/17 12:08; Start 02/10/17 at 16:00; Stop 02/11/17 at 15:59 Insulin Aspart (Novolog) 0-5 UNITS TIDWMEALS SQ ; Start 02/10/17 at 17:00 Dextrose 12.5 gm 12.5 gm PRN Q15MIN PRN IV SEE COMMENTS; Start 02/10/17 at 15: 45 Lactated Ringer's (Iv Lactated Ringers) 1,000 ml @ 75 mls/hr 1X ONCE IV ; Start 02/11/17 at 10:45; Stop 02/12/17 at 00:04 Glycopyrrolate 1 mg 1 mg STK-MED ONCE .ROUTE ; Start 02/11/17 at 11:01; Stop at 11:02; Status DC Propofol (Diprivan) 20 ml @ As Directed STK-MED ONCE IV ; Start 02/11/17 at 11: 02; Stop 02/11/17 at 11:03; Status DC Lidocaine HCl (Lidocaine Pf 2% Vial) 5 ml STK-MED ONCE .ROUTE ; Start 02/11/17 at 11:02; Stop 02/11/17 at 11:03; Status DC Vitals/I & O Vital Sign - Last 24 Hours 02/10/17 02/10/17 02/10/17 02/10/17 14:18 14:48 15:18 15:48 Pulse 85 78 78 80 B/P 106/53 112/65 123/64 136/67 Pulse Ox 96 96 96 O2 Delivery Nasal Cannula Nasal Cannula Nasal Cannula O2 Flow Rate 4 4 4 02/10/17 02/10/17 02/10/17 02/10/17 16:18 16:35 16:48 17:18 Pulse 84 84 80 83 Resp 21 21 B/P 156/70 135/63 122/56 108/52 Pulse Ox 97 96 94 95 O2 Delivery Nasal Cannula Nasal Cannula Nasal Cannula Nasal Cannula O2 Flow Rate 4 4 4 4 02/10/17 02/10/17 02/10/17 02/10/17 18:14 19:00 20:00 21:56 Temp 98.1 99.0 98.1 99.0 Pulse 83 92 Resp 20 B/P 122/56 124/58 Pulse Ox 97 99 O2 Delivery Nasal Cannula Nasal Cannula Nasal Cannula Nasal Cannula O2 Flow Rate 4.0 4.0 4.0 4.0 02/10/17 02/11/17 02/11/17 02/11/17 23:00 03:00 07:00 07:49 Temp 98.9 98.9 98.0 98.9 98.9 98.0 Pulse 86 84 91 Resp 19 19 20 B/P 127/58 122/71 126/62 Pulse Ox 98 96 97 97 O2 Delivery Nasal Cannula Nasal Cannula Nasal Cannula Nasal Cannula O2 Flow Rate 4.0 4.0 4.0 4.0 02/11/17 02/11/17 02/11/17 02/11/17 10:27 10:30 11:00 11:18 Temp 98.0 98.2 98.0 98.2 Pulse 96 117 Resp 20 B/P 101/51 Pulse Ox 97 95 O2 Delivery Nasal Cannula Off Unit Nasal Cannula O2 Flow Rate 4.0 4 02/11/17 02/11/17 11:33 12:09 Temp 98.2 98.2 Pulse 114 Resp 20 B/P 112/54 Pulse Ox 96 97 O2 Delivery Nasal Cannula Nasal Cannula O2 Flow Rate 4 5.0 Intake and Output 02/10/17 02/10/17 02/11/17 15:00 23:00 07:00 Intake Total 150 ml Output Total 1050 ml Balance 150 ml -1050 ml CASTLE,NIAL K III DO Feb 11, 2017 13:56
[2017-02-11 14:25] LABS: % SAT IRON 69 % (15-34); IRON,SERUM 100 ug/dL (65-175)
[2017-02-11 15:00] VITALS: BP 126/62
[2017-02-11] MEDS: LACTULOSE 20 GM/30 ML SOLUTION. PO SCH ×2 (18:40→21:28)
[2017-02-11 19:33] VITALS: BP 154/82
[2017-02-11] MEDS ORDERED: ONDANSETRON PF 4 MG/2 ML VIAL. IV PRN (23:45)
[2017-02-11 23:59] VITALS: BP 141/57
[2017-02-12 03:59] VITALS: BP 159/64
[2017-02-12 05:35] LABS: BASO # 0.1 x10^3/uL (0.0-0.2); BASO % 1 % (0-3); EOS % 3 % (0-3); HEMATOCRIT 32.9 % (39.0-53.0); HEMOGLOBIN 10.9 g/dL (13.0-17.5); LYMPH # 2.6 x10^3/uL (1.0-4.8); LYMPH % 31 % (24-48); MEAN CORPUSCULAR HEMOGLOBIN 34 pg (25-35); MEAN CORPUSCULAR HGB CONC 33 g/dL (31-37); MEAN CORPUSCULAR VOLUME 104 fL (79-100); MONO % 17 % (0-9); NEUT % 48 % (31-73); PLATELET COUNT 177 x10^3/uL (140-400); RED BLOOD COUNT 3.17 x10^6/uL (4.30-5.70); RED CELL DISTRIBUTION WIDTH 14.7 % (11.5-14.5); WHITE BLOOD COUNT 8.4 x10^3/uL (4.0-11.0)
[2017-02-12] MEDS: LACTULOSE 20 GM/30 ML SOLUTION. PO SCH ×5 (06:45→20:46)
[2017-02-12 07:00] VITALS: BP 160/71
[2017-02-12] MEDS: INSULIN ASPART 300 UNITS/3 ML INSULN.PEN SQ SCH ×3 (08:00→17:00)
[2017-02-12 11:00] VITALS: BP 160/71
--- NOTE | 2017-02-12 11:47 | PDOC2 ---
CONSULT Date of Consult Date of Consult DATE: 02/11/17 TIME: 11:46 Current Problem List Problem List Problems Medical Problems: (1) GI bleed Status: Acute Current Medications Current Medications Current Medications Pantoprazole Sodium/Sodium Chloride (Protonix Iv/Iv Sodium Chloride 0.9% 100ml) 100 ml @ 10 mls/hr Q10H IV Last administered on 02/10/17 22:45; Start at 12:45; Stop 02/11/17 at 12:13; Status DC Pantoprazole Sodium (Protonix Vial) 80 mg 1X ONCE IVP Last administered on 13:43; Start 02/10/17 at 12:45; Stop 02/10/17 at 12:46; Status DC Iohexol (Omnipaque 300 Mg/ml) 75 ml 1X ONCE IV Last administered on 02/10/17 14:11; Start 02/10/17 at 14:00; Stop 02/10/17 at 14:01; Status DC Info 1 each 1 each PRN DAILY PRN MC SEE COMMENTS; Start 02/10/17 at 14:00; Stop 02/12/17 at 13:59 Octreotide Acetate/Sodium Chloride (Sandostatin/Iv Sodium Chloride 0.9% 100ml) 101 ml @ 0 mls/hr CONT PRN IV SEE I/O RECORD Last administered on 02/10/17 16: 40; Start 02/10/17 at 15:00; Stop 02/11/17 at 12:13; Status DC Octreotide Acetate 100 mcg 100 mcg 1X ONCE IV Last administered on 02/10/17 16:34; Start 02/10/17 at 15:00; Stop 02/10/17 at 15:10; Status DC Ceftriaxone Sodium (Rocephin 1gm Ivpb For Omni) 50 ml @ 100 mls/hr 1X ONCE IV Last administered on 02/10/17 16:06; Start 02/10/17 at 15:00; Stop 02/10/17 at 15:29; Status DC Ondansetron HCl (Zofran) 4 mg PRN Q8HRS PRN IV NAUSEA/VOMITING; Start 02/10/17 at 15:45; Stop 02/11/17 at 15:44; Status DC Fentanyl Citrate (Fentanyl 2ml Vial) 50 mcg PRN Q1HR PRN IV PAIN; Start at 15:45; Stop 02/11/17 at 15:44; Status DC Albuterol/ Ipratropium (Duoneb) 3 ml RTQID NEB Last administered on 02/11/17 15:19; Start 02/10/17 at 16:00; Stop 02/11/17 at 15:59; Status DC Insulin Aspart (Novolog) 0-5 UNITS TIDWMEALS SQ ; Start 02/10/17 at 17:00 Dextrose 12.5 gm 12.5 gm PRN Q15MIN PRN IV SEE COMMENTS; Start 02/10/17 at 15: 45 Lactated Ringer's (Iv Lactated Ringers) 1,000 ml @ 75 mls/hr 1X ONCE IV ; Start 02/11/17 at 10:45; Stop 02/12/17 at 00:04; Status DC Glycopyrrolate 1 mg 1 mg STK-MED ONCE .ROUTE ; Start 02/11/17 at 11:01; Stop at 11:02; Status DC Propofol (Diprivan) 20 ml @ As Directed STK-MED ONCE IV ; Start 02/11/17 at 11: 02; Stop 02/11/17 at 11:03; Status DC Lidocaine HCl (Lidocaine Pf 2% Vial) 5 ml STK-MED ONCE .ROUTE ; Start 02/11/17 at 11:02; Stop 02/11/17 at 11:03; Status DC Lactulose 20 gm 5XDAY PO Last administered on 02/12/17 08:34; Start 02/11/17 at 18:00 Ondansetron HCl (Zofran) 8 mg PRN Q8HRS PRN IV NAUSEA/VOMITING Last administered on 02/11/17 23:55; Start 02/11/17 at 23:45 Allergies Allergies: Coded Allergies: codeine (Verified Allergy, Intermediate, Hives, 02/11/17) Vitals VITALS Vital Signs Date Time Temp Pulse Resp B/P Pulse Ox O2 Delivery O2 Flow Rate FiO2 02/12/17 11:00 98.3 87 160/71 95 Nasal Cannula 4.0 98.3 02/12/17 07:00 20 Labs Labs Laboratory Tests Test 02/10/17 12:40 02/10/17 13:18 02/10/17 16:00 02/10/17 17:45 Stool Occult Blood Positive (NEG) White Blood Count 7.9x10^3/uL (4.0-11.0) Red Blood Count 3.57x10^6/uL (4.30-5.70) Hemoglobin 12.6g/dL (13.0-17.5) 11.9g/dL (13.0-17.5) Hematocrit 36.3% (39.0-53.0) Mean Corpuscular Volume 102fL (79-100) Mean Corpuscular Hemoglobin 35pg (25-35) Mean Corpuscular Hemoglobin Concent 35g/dL (31-37) Red Cell Distribution Width 14.6% (11.5-14.5) Platelet Count 176x10^3/uL (140-400) Neutrophils (%) (Auto) 56% (31-73) Lymphocytes (%) (Auto) 31% (24-48) Monocytes (%) (Auto) 11% (0-9) Eosinophils (%) (Auto) 1% (0-3) Basophils (%) (Auto) 1% (0-3) Neutrophils # (Auto) 4.4x10^3uL (1.8-7.7) Lymphocytes # (Auto) 2.4x10^3/uL (1.0-4.8) Monocytes # (Auto) 0.9x10^3/uL (0.0-1.1) Eosinophils # (Auto) 0.1x10^3/uL (0.0-0.7) Basophils # (Auto) 0.1x10^3/uL (0.0-0.2) Prothrombin Time 16.9SEC (11.7-14.0) Prothromb Time International Ratio 1.5 (0.8-1.1) Activated Partial Thromboplast Time 36SEC (24-38) Sodium Level 141mmol/L (136-145) Potassium Level 5.1mmol/L (3.5-5.1) Chloride Level 103mmol/L (98-107) Carbon Dioxide Level 34mmol/L (21-32) Anion Gap 4 (6-14) Blood Urea Nitrogen 13mg/dL (8-26) Creatinine 0.7mg/dL (0.7-1.3) Estimated GFR (Cockcroft-Gault) 114.3 BUN/Creatinine Ratio 19 (6-20) Glucose Level 123mg/dL (70-99) Lactic Acid Level 2.3mmol/L (0.4-2.0) 2.3mmol/L (0.4-2.0) Calcium Level 8.5mg/dL (8.5-10.1) Total Bilirubin 1.8mg/dL (0.2-1.0) Aspartate Amino Transf (AST/SGOT) 85U/L (15-37) Alanine Aminotransferase (ALT/SGPT) 52U/L (16-63) Alkaline Phosphatase 292U/L (46-116) Troponin I Quantitative 0.018ng/mL (0.000-0.055) Total Protein 6.9g/dL (6.4-8.2) Albumin 2.4g/dL (3.4-5.0) Albumin/Globulin Ratio 0.5 (1.0-1.7) Test 02/10/17 21:30 02/11/17 04:05 02/11/17 07:45 02/11/17 12:16 Glucose (Fingerstick) 127mg/dL (70-99) 150mg/dL (70-99) 163mg/dL (70-99) White Blood Count 8.0x10^3/uL (4.0-11.0) Red Blood Count 3.16x10^6/uL (4.30-5.70) Hemoglobin 10.9g/dL (13.0-17.5) Hematocrit 33.1% (39.0-53.0) Mean Corpuscular Volume 105fL (79-100) Mean Corpuscular Hemoglobin 34pg (25-35) Mean Corpuscular Hemoglobin Concent 33g/dL (31-37) Red Cell Distribution Width 14.7% (11.5-14.5) Platelet Count 160x10^3/uL (140-400) Neutrophils (%) (Auto) 47% (31-73) Lymphocytes (%) (Auto) 33% (24-48) Monocytes (%) (Auto) 17% (0-9) Eosinophils (%) (Auto) 3% (0-3) Basophils (%) (Auto) 1% (0-3) Neutrophils # (Auto) 3.8x10^3uL (1.8-7.7) Lymphocytes # (Auto) 2.7x10^3/uL (1.0-4.8) Monocytes # (Auto) 1.3x10^3/uL (0.0-1.1) Eosinophils # (Auto) 0.2x10^3/uL (0.0-0.7) Basophils # (Auto) 0.1x10^3/uL (0.0-0.2) Sodium Level 141mmol/L (136-145) Potassium Level 5.3mmol/L (3.5-5.1) Chloride Level 104mmol/L (98-107) Carbon Dioxide Level 33mmol/L (21-32) Anion Gap 4 (6-14) Blood Urea Nitrogen 18mg/dL (8-26) Creatinine 0.7mg/dL (0.7-1.3) Estimated GFR (Cockcroft-Gault) 114.3 BUN/Creatinine Ratio 26 (6-20) Glucose Level 156mg/dL (70-99) Calcium Level 8.5mg/dL (8.5-10.1) Total Bilirubin 1.7mg/dL (0.2-1.0) Aspartate Amino Transf (AST/SGOT) 79U/L (15-37) Alanine Aminotransferase (ALT/SGPT) 44U/L (16-63) Alkaline Phosphatase 238U/L (46-116) Total Protein 6.1g/dL (6.4-8.2) Albumin 2.2g/dL (3.4-5.0) Albumin/Globulin Ratio 0.6 (1.0-1.7) Test 02/11/17 13:55 02/11/17 16:45 02/11/17 20:46 02/12/17 05:00 Iron Level 100ug/dL (65-175) Total Iron Binding Capacity 145ug/dL (250-450) Iron Saturation 69% (15-34) Ammonia 101mcmol/L (11-34) 67mcmol/L (11-34) Glucose (Fingerstick) 159mg/dL (70-99) 198mg/dL (70-99) White Blood Count 8.4x10^3/uL (4.0-11.0) Red Blood Count 3.17x10^6/uL (4.30-5.70) Hemoglobin 10.9g/dL (13.0-17.5) Hematocrit 32.9% (39.0-53.0) Mean Corpuscular Volume 104fL (79-100) Mean Corpuscular Hemoglobin 34pg (25-35) Mean Corpuscular Hemoglobin Concent 33g/dL (31-37) Red Cell Distribution Width 14.7% (11.5-14.5) Platelet Count 177x10^3/uL (140-400) Neutrophils (%) (Auto) 48% (31-73) Lymphocytes (%) (Auto) 31% (24-48) Monocytes (%) (Auto) 17% (0-9) Eosinophils (%) (Auto) 3% (0-3) Basophils (%) (Auto) 1% (0-3) Neutrophils # (Auto) 4.0x10^3uL (1.8-7.7) Lymphocytes # (Auto) 2.6x10^3/uL (1.0-4.8) Monocytes # (Auto) 1.4x10^3/uL (0.0-1.1) Eosinophils # (Auto) 0.2x10^3/uL (0.0-0.7) Basophils # (Auto) 0.1x10^3/uL (0.0-0.2) Reticulocyte Count (auto) 1.2% (0.5-2.5) Test 02/12/17 07:51 02/12/17 11:11 Glucose (Fingerstick) 116mg/dL (70-99) 139mg/dL (70-99) Laboratory Tests Test 02/11/17 12:16 02/11/17 13:55 02/11/17 16:45 02/11/17 20:46 Glucose (Fingerstick) 163mg/dL (70-99) 159mg/dL (70-99) 198mg/dL (70-99) Iron Level 100ug/dL (65-175) Total Iron Binding Capacity 145ug/dL (250-450) Iron Saturation 69% (15-34) Ammonia 101mcmol/L (11-34) Test 02/12/17 05:00 02/12/17 07:51 02/12/17 11:11 White Blood Count 8.4x10^3/uL (4.0-11.0) Red Blood Count 3.17x10^6/uL (4.30-5.70) Hemoglobin 10.9g/dL (13.0-17.5) Hematocrit 32.9% (39.0-53.0) Mean Corpuscular Volume 104fL (79-100) Mean Corpuscular Hemoglobin 34pg (25-35) Mean Corpuscular Hemoglobin Concent 33g/dL (31-37) Red Cell Distribution Width 14.7% (11.5-14.5) Platelet Count 177x10^3/uL (140-400) Neutrophils (%) (Auto) 48% (31-73) Lymphocytes (%) (Auto) 31% (24-48) Monocytes (%) (Auto) 17% (0-9) Eosinophils (%) (Auto) 3% (0-3) Basophils (%) (Auto) 1% (0-3) Neutrophils # (Auto) 4.0x10^3uL (1.8-7.7) Lymphocytes # (Auto) 2.6x10^3/uL (1.0-4.8) Monocytes # (Auto) 1.4x10^3/uL (0.0-1.1) Eosinophils # (Auto) 0.2x10^3/uL (0.0-0.7) Basophils # (Auto) 0.1x10^3/uL (0.0-0.2) Reticulocyte Count (auto) 1.2% (0.5-2.5) Ammonia 67mcmol/L (11-34) Glucose (Fingerstick) 116mg/dL (70-99) 139mg/dL (70-99) Assessment/Plan Assessment/Plan [facility] Wk # [id number] BERNARDO GRANT MD Feb 12, 2017 11:47
--- NOTE | 2017-02-12 13:38 | PDOC ---
PROGRESS NOTES Chief Complaint Chief Complaint cc: Coffee-ground emesis and blood in stool -CAD Hypertension -COPD -Oxygen use -GERD -DM -Anemia -Cirrhosis -Orthopedic surgeries -Pressure ulcers -Cirrhosis -Lymphoma History of Present Illness History of Present Illness Mr. Love is lying comfortably in his bed. He was on 4L N/C and in NAD. He was open to possibly discharging today. We will verify with subspecialists that this is the best course of action. Vitals Vitals Vital Signs Date Time Temp Pulse Resp B/P Pulse Ox O2 Delivery O2 Flow Rate FiO2 02/12/17 11:00 98.3 87 160/71 95 Nasal Cannula 4.0 98.3 02/12/17 07:00 20 Physical Exam General: Cooperative, No acute distress Heart: Regular rate, Normal S1, Normal S2 Lungs: Clear, Other (No chest retractions) Abdomen: Soft, No tenderness Extremities: No clubbing, No cyanosis Skin: No rashes, Other ( Lower extremity findings concurrent with venous stasis ) Labs LABS Laboratory Tests Test 02/11/17 13:55 02/11/17 16:45 02/11/17 20:46 02/12/17 05:00 Iron Level 100ug/dL (65-175) Total Iron Binding Capacity 145ug/dL (250-450) Iron Saturation 69% (15-34) Ammonia 101mcmol/L (11-34) 67mcmol/L (11-34) Tumor Marker Alpha Fetoprotein 1.9ng/mL (0.0-8.3) Glucose (Fingerstick) 159mg/dL (70-99) 198mg/dL (70-99) White Blood Count 8.4x10^3/uL (4.0-11.0) Red Blood Count 3.17x10^6/uL (4.30-5.70) Hemoglobin 10.9g/dL (13.0-17.5) Hematocrit 32.9% (39.0-53.0) Mean Corpuscular Volume 104fL (79-100) Mean Corpuscular Hemoglobin 34pg (25-35) Mean Corpuscular Hemoglobin Concent 33g/dL (31-37) Red Cell Distribution Width 14.7% (11.5-14.5) Platelet Count 177x10^3/uL (140-400) Neutrophils (%) (Auto) 48% (31-73) Lymphocytes (%) (Auto) 31% (24-48) Monocytes (%) (Auto) 17% (0-9) Eosinophils (%) (Auto) 3% (0-3) Basophils (%) (Auto) 1% (0-3) Neutrophils # (Auto) 4.0x10^3uL (1.8-7.7) Lymphocytes # (Auto) 2.6x10^3/uL (1.0-4.8) Monocytes # (Auto) 1.4x10^3/uL (0.0-1.1) Eosinophils # (Auto) 0.2x10^3/uL (0.0-0.7) Basophils # (Auto) 0.1x10^3/uL (0.0-0.2) Reticulocyte Count (auto) 1.2% (0.5-2.5) Test 02/12/17 07:51 02/12/17 11:11 Glucose (Fingerstick) 116mg/dL (70-99) 139mg/dL (70-99) Review of Systems Review of Systems The patient reports that he had vomiting episodes yesterday, but he does not have any today. He is not experiencing any feelings of nausea. He does report dizziness today. Assessment and Plan Assessmemt and Plan Problems Medical Problems: (1) GI bleed Status: Acute Assessment: Mr. Love is a 61 year old male that presented with coffee-ground emesis and blood in his stool. -CAD Hypertension -COPD -Oxygen use -GERD -DM -Anemia -Cirrhosis -Orthopedic surgeries -Pressure ulcers -Cirrhosis -Lymphoma Plan: 1. Consider D/C when verified by subspecialists 2. Monitor labs, especially hemoglobin 3. Continue breathing treatments 4. Continue nausea medication ondansetron 5. Continue insulin as needed 6. Consider PT/OT 7. Appreciate consultation from GI Problems: Comment Review of Relevant I have reviewed the following items sandie (where applicable) has been applied. Labs Laboratory Tests Test 02/10/17 16:00 02/10/17 17:45 02/10/17 21:30 02/11/17 04:05 Lactic Acid Level 2.3mmol/L (0.4-2.0) Hemoglobin 11.9g/dL (13.0-17.5) 10.9g/dL (13.0-17.5) Glucose (Fingerstick) 127mg/dL (70-99) White Blood Count 8.0x10^3/uL (4.0-11.0) Red Blood Count 3.16x10^6/uL (4.30-5.70) Hematocrit 33.1% (39.0-53.0) Mean Corpuscular Volume 105fL (79-100) Mean Corpuscular Hemoglobin 34pg (25-35) Mean Corpuscular Hemoglobin Concent 33g/dL (31-37) Red Cell Distribution Width 14.7% (11.5-14.5) Platelet Count 160x10^3/uL (140-400) Neutrophils (%) (Auto) 47% (31-73) Lymphocytes (%) (Auto) 33% (24-48) Monocytes (%) (Auto) 17% (0-9) Eosinophils (%) (Auto) 3% (0-3) Basophils (%) (Auto) 1% (0-3) Neutrophils # (Auto) 3.8x10^3uL (1.8-7.7) Lymphocytes # (Auto) 2.7x10^3/uL (1.0-4.8) Monocytes # (Auto) 1.3x10^3/uL (0.0-1.1) Eosinophils # (Auto) 0.2x10^3/uL (0.0-0.7) Basophils # (Auto) 0.1x10^3/uL (0.0-0.2) Sodium Level 141mmol/L (136-145) Potassium Level 5.3mmol/L (3.5-5.1) Chloride Level 104mmol/L (98-107) Carbon Dioxide Level 33mmol/L (21-32) Anion Gap 4 (6-14) Blood Urea Nitrogen 18mg/dL (8-26) Creatinine 0.7mg/dL (0.7-1.3) Estimated GFR (Cockcroft-Gault) 114.3 BUN/Creatinine Ratio 26 (6-20) Glucose Level 156mg/dL (70-99) Calcium Level 8.5mg/dL (8.5-10.1) Total Bilirubin 1.7mg/dL (0.2-1.0) Aspartate Amino Transf (AST/SGOT) 79U/L (15-37) Alanine Aminotransferase (ALT/SGPT) 44U/L (16-63) Alkaline Phosphatase 238U/L (46-116) Total Protein 6.1g/dL (6.4-8.2) Albumin 2.2g/dL (3.4-5.0) Albumin/Globulin Ratio 0.6 (1.0-1.7) Test 02/11/17 07:45 02/11/17 12:16 02/11/17 13:55 02/11/17 16:45 Glucose (Fingerstick) 150mg/dL (70-99) 163mg/dL (70-99) 159mg/dL (70-99) Iron Level 100ug/dL (65-175) Total Iron Binding Capacity 145ug/dL (250-450) Iron Saturation 69% (15-34) Ammonia 101mcmol/L (11-34) Tumor Marker Alpha Fetoprotein 1.9ng/mL (0.0-8.3) Test 02/11/17 20:46 02/12/17 05:00 02/12/17 07:51 02/12/17 11:11 Glucose (Fingerstick) 198mg/dL (70-99) 116mg/dL (70-99) 139mg/dL (70-99) White Blood Count 8.4x10^3/uL (4.0-11.0) Red Blood Count 3.17x10^6/uL (4.30-5.70) Hemoglobin 10.9g/dL (13.0-17.5) Hematocrit 32.9% (39.0-53.0) Mean Corpuscular Volume 104fL (79-100) Mean Corpuscular Hemoglobin 34pg (25-35) Mean Corpuscular Hemoglobin Concent 33g/dL (31-37) Red Cell Distribution Width 14.7% (11.5-14.5) Platelet Count 177x10^3/uL (140-400) Neutrophils (%) (Auto) 48% (31-73) Lymphocytes (%) (Auto) 31% (24-48) Monocytes (%) (Auto) 17% (0-9) Eosinophils (%) (Auto) 3% (0-3) Basophils (%) (Auto) 1% (0-3) Neutrophils # (Auto) 4.0x10^3uL (1.8-7.7) Lymphocytes # (Auto) 2.6x10^3/uL (1.0-4.8) Monocytes # (Auto) 1.4x10^3/uL (0.0-1.1) Eosinophils # (Auto) 0.2x10^3/uL (0.0-0.7) Basophils # (Auto) 0.1x10^3/uL (0.0-0.2) Reticulocyte Count (auto) 1.2% (0.5-2.5) Ammonia 67mcmol/L (11-34) Laboratory Tests Test 02/11/17 13:55 02/11/17 16:45 02/11/17 20:46 02/12/17 05:00 Iron Level 100ug/dL (65-175) Total Iron Binding Capacity 145ug/dL (250-450) Iron Saturation 69% (15-34) Ammonia 101mcmol/L (11-34) 67mcmol/L (11-34) Tumor Marker Alpha Fetoprotein 1.9ng/mL (0.0-8.3) Glucose (Fingerstick) 159mg/dL (70-99) 198mg/dL (70-99) White Blood Count 8.4x10^3/uL (4.0-11.0) Red Blood Count 3.17x10^6/uL (4.30-5.70) Hemoglobin 10.9g/dL (13.0-17.5) Hematocrit 32.9% (39.0-53.0) Mean Corpuscular Volume 104fL (79-100) Mean Corpuscular Hemoglobin 34pg (25-35) Mean Corpuscular Hemoglobin Concent 33g/dL (31-37) Red Cell Distribution Width 14.7% (11.5-14.5) Platelet Count 177x10^3/uL (140-400) Neutrophils (%) (Auto) 48% (31-73) Lymphocytes (%) (Auto) 31% (24-48) Monocytes (%) (Auto) 17% (0-9) Eosinophils (%) (Auto) 3% (0-3) Basophils (%) (Auto) 1% (0-3) Neutrophils # (Auto) 4.0x10^3uL (1.8-7.7) Lymphocytes # (Auto) 2.6x10^3/uL (1.0-4.8) Monocytes # (Auto) 1.4x10^3/uL (0.0-1.1) Eosinophils # (Auto) 0.2x10^3/uL (0.0-0.7) Basophils # (Auto) 0.1x10^3/uL (0.0-0.2) Reticulocyte Count (auto) 1.2% (0.5-2.5) Test 02/12/17 07:51 02/12/17 11:11 Glucose (Fingerstick) 116mg/dL (70-99) 139mg/dL (70-99) Medications Current Medications Pantoprazole Sodium/Sodium Chloride (Protonix Iv/Iv Sodium Chloride 0.9% 100ml) 100 ml @ 10 mls/hr Q10H IV Last administered on 02/10/17 22:45; Start at 12:45; Stop 02/11/17 at 12:13; Status DC Pantoprazole Sodium (Protonix Vial) 80 mg 1X ONCE IVP Last administered on 13:43; Start 02/10/17 at 12:45; Stop 02/10/17 at 12:46; Status DC Iohexol (Omnipaque 300 Mg/ml) 75 ml 1X ONCE IV Last administered on 02/10/17 14:11; Start 02/10/17 at 14:00; Stop 02/10/17 at 14:01; Status DC Info 1 each 1 each PRN DAILY PRN MC SEE COMMENTS; Start 02/10/17 at 14:00; Stop 02/12/17 at 13:59 Octreotide Acetate/Sodium Chloride (Sandostatin/Iv Sodium Chloride 0.9% 100ml) 101 ml @ 0 mls/hr CONT PRN IV SEE I/O RECORD Last administered on 02/10/17 16: 40; Start 02/10/17 at 15:00; Stop 02/11/17 at 12:13; Status DC Octreotide Acetate 100 mcg 100 mcg 1X ONCE IV Last administered on 02/10/17 16:34; Start 02/10/17 at 15:00; Stop 02/10/17 at 15:10; Status DC Ceftriaxone Sodium (Rocephin 1gm Ivpb For Omni) 50 ml @ 100 mls/hr 1X ONCE IV Last administered on 02/10/17 16:06; Start 02/10/17 at 15:00; Stop 02/10/17 at 15:29; Status DC Ondansetron HCl (Zofran) 4 mg PRN Q8HRS PRN IV NAUSEA/VOMITING; Start 02/10/17 at 15:45; Stop 02/11/17 at 15:44; Status DC Fentanyl Citrate (Fentanyl 2ml Vial) 50 mcg PRN Q1HR PRN IV PAIN; Start at 15:45; Stop 02/11/17 at 15:44; Status DC Albuterol/ Ipratropium (Duoneb) 3 ml RTQID NEB Last administered on 02/11/17 15:19; Start 02/10/17 at 16:00; Stop 02/11/17 at 15:59; Status DC Insulin Aspart (Novolog) 0-5 UNITS TIDWMEALS SQ ; Start 02/10/17 at 17:00 Dextrose 12.5 gm 12.5 gm PRN Q15MIN PRN IV SEE COMMENTS; Start 02/10/17 at 15: 45 Lactated Ringer's (Iv Lactated Ringers) 1,000 ml @ 75 mls/hr 1X ONCE IV ; Start 02/11/17 at 10:45; Stop 02/12/17 at 00:04; Status DC Glycopyrrolate 1 mg 1 mg STK-MED ONCE .ROUTE ; Start 02/11/17 at 11:01; Stop at 11:02; Status DC Propofol (Diprivan) 20 ml @ As Directed STK-MED ONCE IV ; Start 02/11/17 at 11: 02; Stop 02/11/17 at 11:03; Status DC Lidocaine HCl (Lidocaine Pf 2% Vial) 5 ml STK-MED ONCE .ROUTE ; Start 02/11/17 at 11:02; Stop 02/11/17 at 11:03; Status DC Lactulose 20 gm 5XDAY PO Last administered on 02/12/17 08:34; Start 02/11/17 at 18:00 Ondansetron HCl (Zofran) 8 mg PRN Q8HRS PRN IV NAUSEA/VOMITING Last administered on 02/11/17t 23:55; Start 02/11/17 at 23:45 Vitals/I & O Vital Sign - Last 24 Hours 02/11/17 02/11/17 02/11/17 02/11/17 15:00 15:21 19:33 20:25 Temp 98.4 98.5 98.4 98.5 Pulse 96 89 Resp B/P 126/62 154/82 Pulse Ox 97 94 O2 Delivery Nasal Cannula Nasal Cannula Nasal Cannula Nasal Cannula O2 Flow Rate 4.0 5.0 4.0 4.0 02/11/17 02/12/17 02/12/17 02/12/17 23:59 03:59 07:00 08:00 Temp 98.1 98.4 98.2 98.1 98.4 98.2 Pulse 94 88 87 Resp 20 B/P 141/57 159/64 160/71 Pulse Ox 96 95 95 O2 Delivery Nasal Cannula Nasal Cannula Nasal Cannula Nasal Cannula O2 Flow Rate 4.0 4.0 4.0 4.0 02/12/17 11:00 Temp 98.3 98.3 Pulse 87 B/P 160/71 Pulse Ox 95 O2 Delivery Nasal Cannula O2 Flow Rate 4.0 Intake and Output 02/11/17 02/11/17 02/12/17 15:00 23:00 07:00 Intake Total 240 ml 640 ml Output Total 3 ml Balance 240 ml 637 ml ZHOU GARCIA III DO Feb 12, 2017 13:38
--- NOTE | 2017-02-12 13:44 | PDOC ---
G I PROGRESS NOTE Subjective Sleeping, not awakened. Objective No reports of any bleeding. Physical Exam No PE. Review of Relevant I have reviewed the following items sandie (where applicable) has been applied. Labs Laboratory Tests Test 02/10/17 16:00 02/10/17 17:45 02/10/17 21:30 02/11/17 04:05 Lactic Acid Level 2.3mmol/L (0.4-2.0) Hemoglobin 11.9g/dL (13.0-17.5) 10.9g/dL (13.0-17.5) Glucose (Fingerstick) 127mg/dL (70-99) White Blood Count 8.0x10^3/uL (4.0-11.0) Red Blood Count 3.16x10^6/uL (4.30-5.70) Hematocrit 33.1% (39.0-53.0) Mean Corpuscular Volume 105fL (79-100) Mean Corpuscular Hemoglobin 34pg (25-35) Mean Corpuscular Hemoglobin Concent 33g/dL (31-37) Red Cell Distribution Width 14.7% (11.5-14.5) Platelet Count 160x10^3/uL (140-400) Neutrophils (%) (Auto) 47% (31-73) Lymphocytes (%) (Auto) 33% (24-48) Monocytes (%) (Auto) 17% (0-9) Eosinophils (%) (Auto) 3% (0-3) Basophils (%) (Auto) 1% (0-3) Neutrophils # (Auto) 3.8x10^3uL (1.8-7.7) Lymphocytes # (Auto) 2.7x10^3/uL (1.0-4.8) Monocytes # (Auto) 1.3x10^3/uL (0.0-1.1) Eosinophils # (Auto) 0.2x10^3/uL (0.0-0.7) Basophils # (Auto) 0.1x10^3/uL (0.0-0.2) Sodium Level 141mmol/L (136-145) Potassium Level 5.3mmol/L (3.5-5.1) Chloride Level 104mmol/L (98-107) Carbon Dioxide Level 33mmol/L (21-32) Anion Gap 4 (6-14) Blood Urea Nitrogen 18mg/dL (8-26) Creatinine 0.7mg/dL (0.7-1.3) Estimated GFR (Cockcroft-Gault) 114.3 BUN/Creatinine Ratio 26 (6-20) Glucose Level 156mg/dL (70-99) Calcium Level 8.5mg/dL (8.5-10.1) Total Bilirubin 1.7mg/dL (0.2-1.0) Aspartate Amino Transf (AST/SGOT) 79U/L (15-37) Alanine Aminotransferase (ALT/SGPT) 44U/L (16-63) Alkaline Phosphatase 238U/L (46-116) Total Protein 6.1g/dL (6.4-8.2) Albumin 2.2g/dL (3.4-5.0) Albumin/Globulin Ratio 0.6 (1.0-1.7) Test 02/11/17 07:45 02/11/17 12:16 02/11/17 13:55 02/11/17 16:45 Glucose (Fingerstick) 150mg/dL (70-99) 163mg/dL (70-99) 159mg/dL (70-99) Iron Level 100ug/dL (65-175) Total Iron Binding Capacity 145ug/dL (250-450) Iron Saturation 69% (15-34) Ammonia 101mcmol/L (11-34) Tumor Marker Alpha Fetoprotein 1.9ng/mL (0.0-8.3) Test 02/11/17 20:46 02/12/17 05:00 02/12/17 07:51 02/12/17 11:11 Glucose (Fingerstick) 198mg/dL (70-99) 116mg/dL (70-99) 139mg/dL (70-99) White Blood Count 8.4x10^3/uL (4.0-11.0) Red Blood Count 3.17x10^6/uL (4.30-5.70) Hemoglobin 10.9g/dL (13.0-17.5) Hematocrit 32.9% (39.0-53.0) Mean Corpuscular Volume 104fL (79-100) Mean Corpuscular Hemoglobin 34pg (25-35) Mean Corpuscular Hemoglobin Concent 33g/dL (31-37) Red Cell Distribution Width 14.7% (11.5-14.5) Platelet Count 177x10^3/uL (140-400) Neutrophils (%) (Auto) 48% (31-73) Lymphocytes (%) (Auto) 31% (24-48) Monocytes (%) (Auto) 17% (0-9) Eosinophils (%) (Auto) 3% (0-3) Basophils (%) (Auto) 1% (0-3) Neutrophils # (Auto) 4.0x10^3uL (1.8-7.7) Lymphocytes # (Auto) 2.6x10^3/uL (1.0-4.8) Monocytes # (Auto) 1.4x10^3/uL (0.0-1.1) Eosinophils # (Auto) 0.2x10^3/uL (0.0-0.7) Basophils # (Auto) 0.1x10^3/uL (0.0-0.2) Reticulocyte Count (auto) 1.2% (0.5-2.5) Ammonia 67mcmol/L (11-34) Laboratory Tests Test 02/11/17 13:55 02/11/17 16:45 02/11/17 20:46 02/12/17 05:00 Iron Level 100ug/dL (65-175) Total Iron Binding Capacity 145ug/dL (250-450) Iron Saturation 69% (15-34) Ammonia 101mcmol/L (11-34) 67mcmol/L (11-34) Tumor Marker Alpha Fetoprotein 1.9ng/mL (0.0-8.3) Glucose (Fingerstick) 159mg/dL (70-99) 198mg/dL (70-99) White Blood Count 8.4x10^3/uL (4.0-11.0) Red Blood Count 3.17x10^6/uL (4.30-5.70) Hemoglobin 10.9g/dL (13.0-17.5) Hematocrit 32.9% (39.0-53.0) Mean Corpuscular Volume 104fL (79-100) Mean Corpuscular Hemoglobin 34pg (25-35) Mean Corpuscular Hemoglobin Concent 33g/dL (31-37) Red Cell Distribution Width 14.7% (11.5-14.5) Platelet Count 177x10^3/uL (140-400) Neutrophils (%) (Auto) 48% (31-73) Lymphocytes (%) (Auto) 31% (24-48) Monocytes (%) (Auto) 17% (0-9) Eosinophils (%) (Auto) 3% (0-3) Basophils (%) (Auto) 1% (0-3) Neutrophils # (Auto) 4.0x10^3uL (1.8-7.7) Lymphocytes # (Auto) 2.6x10^3/uL (1.0-4.8) Monocytes # (Auto) 1.4x10^3/uL (0.0-1.1) Eosinophils # (Auto) 0.2x10^3/uL (0.0-0.7) Basophils # (Auto) 0.1x10^3/uL (0.0-0.2) Reticulocyte Count (auto) 1.2% (0.5-2.5) Test 02/12/17 07:51 02/12/17 11:11 Glucose (Fingerstick) 116mg/dL (70-99) 139mg/dL (70-99) Hemoglobin stable. Medications Current Medications Pantoprazole Sodium/Sodium Chloride (Protonix Iv/Iv Sodium Chloride 0.9% 100ml) 100 ml @ 10 mls/hr Q10H IV Last administered on 02/10/17 22:45; Start at 12:45; Stop 02/11/17 at 12:13; Status DC Pantoprazole Sodium (Protonix Vial) 80 mg 1X ONCE IVP Last administered on 13:43; Start 02/10/17 at 12:45; Stop 02/10/17 at 12:46; Status DC Iohexol (Omnipaque 300 Mg/ml) 75 ml 1X ONCE IV Last administered on 02/10/17 14:11; Start 02/10/17 at 14:00; Stop 02/10/17 at 14:01; Status DC Info 1 each 1 each PRN DAILY PRN MC SEE COMMENTS; Start 02/10/17 at 14:00; Stop 02/12/17 at 13:59 Octreotide Acetate/Sodium Chloride (Sandostatin/Iv Sodium Chloride 0.9% 100ml) 101 ml @ 0 mls/hr CONT PRN IV SEE I/O RECORD Last administered on 02/10/17 16: 40; Start 02/10/17 at 15:00; Stop 02/11/17 at 12:13; Status DC Octreotide Acetate 100 mcg 100 mcg 1X ONCE IV Last administered on 02/10/17 16:34; Start 02/10/17 at 15:00; Stop 02/10/17 at 15:10; Status DC Ceftriaxone Sodium (Rocephin 1gm Ivpb For Omni) 50 ml @ 100 mls/hr 1X ONCE IV Last administered on 02/10/17 16:06; Start 02/10/17 at 15:00; Stop 02/10/17 at 15:29; Status DC Ondansetron HCl (Zofran) 4 mg PRN Q8HRS PRN IV NAUSEA/VOMITING; Start 02/10/17 at 15:45; Stop 02/11/17 at 15:44; Status DC Fentanyl Citrate (Fentanyl 2ml Vial) 50 mcg PRN Q1HR PRN IV PAIN; Start at 15:45; Stop 02/11/17 at 15:44; Status DC Albuterol/ Ipratropium (Duoneb) 3 ml RTQID NEB Last administered on 02/11/17 15:19; Start 02/10/17 at 16:00; Stop 02/11/17 at 15:59; Status DC Insulin Aspart (Novolog) 0-5 UNITS TIDWMEALS SQ ; Start 02/10/17 at 17:00 Dextrose 12.5 gm 12.5 gm PRN Q15MIN PRN IV SEE COMMENTS; Start 02/10/17 at 15: 45 Lactated Ringer's (Iv Lactated Ringers) 1,000 ml @ 75 mls/hr 1X ONCE IV ; Start 02/11/17 at 10:45; Stop 02/12/17 at 00:04; Status DC Glycopyrrolate 1 mg 1 mg STK-MED ONCE .ROUTE ; Start 02/11/17 at 11:01; Stop at 11:02; Status DC Propofol (Diprivan) 20 ml @ As Directed STK-MED ONCE IV ; Start 02/11/17 at 11: 02; Stop 02/11/17 at 11:03; Status DC Lidocaine HCl (Lidocaine Pf 2% Vial) 5 ml STK-MED ONCE .ROUTE ; Start 02/11/17 at 11:02; Stop 02/11/17 at 11:03; Status DC Lactulose 20 gm 5XDAY PO Last administered on 02/12/17 08:34; Start 02/11/17 at 18:00 Ondansetron HCl (Zofran) 8 mg PRN Q8HRS PRN IV NAUSEA/VOMITING Last administered on 02/11/17 23:55; Start 02/11/17 at 23:45 Vitals/I & O Vital Sign - Last 24 Hours 02/11/17 02/11/17 02/11/17 02/11/17 15:00 15:21 19:33 20:25 Temp 98.4 98.5 98.4 98.5 Pulse 96 89 Resp 20 22 B/P 126/62 154/82 Pulse Ox 97 94 O2 Delivery Nasal Cannula Nasal Cannula Nasal Cannula Nasal Cannula O2 Flow Rate 4.0 5.0 4.0 4.0 02/11/17 02/12/17 02/12/17 02/12/17 23:59 03:59 07:00 08:00 Temp 98.1 98.4 98.2 98.1 98.4 98.2 Pulse 94 88 87 Resp 22 22 20 B/P 141/57 159/64 160/71 Pulse Ox 96 95 95 O2 Delivery Nasal Cannula Nasal Cannula Nasal Cannula Nasal Cannula O2 Flow Rate 4.0 4.0 4.0 4.0 02/12/17 11:00 Temp 98.3 98.3 Pulse 87 B/P 160/71 Pulse Ox 95 O2 Delivery Nasal Cannula O2 Flow Rate 4.0 Intake and Output 02/11/17 02/11/17 02/12/17 15:00 23:00 07:00 Intake Total 240 ml 640 ml Output Total 3 ml Balance 240 ml 637 ml Problem List Problems Medical Problems: (1) GI bleed Status: Acute Assessment No meaningful bleeding apparently. Probable cirrhotic, likely alcoholic. Plan of Care: Continue current Tx, Mgmt Plan of Care Note Await pending studies. OK to advance diet. If clinically encephalopathic, lactulose, etc. ADONIS RUSSELL MD Feb 12, 2017 13:44
[2017-02-12 15:00] VITALS: BP 157/76
[2017-02-12 19:00] VITALS: BP 167/64
[2017-02-12 23:00] VITALS: BP 119/68
[2017-02-12] MEDS ORDERED: ACETAMINOPHEN 325 MG TABLET. PO PRN (23:30)
[2017-02-13 03:00] VITALS: BP 148/65
[2017-02-13 04:01] LABS: BASO # 0.1 x10^3/uL (0.0-0.2); BASO % 1 % (0-3); EOS % 2 % (0-3); HEMATOCRIT 32.8 % (39.0-53.0); HEMOGLOBIN 10.7 g/dL (13.0-17.5); LYMPH # 2.7 x10^3/uL (1.0-4.8); LYMPH % 32 % (24-48); MEAN CORPUSCULAR HEMOGLOBIN 34 pg (25-35); MEAN CORPUSCULAR HGB CONC 33 g/dL (31-37); MEAN CORPUSCULAR VOLUME 105 fL (79-100); MONO % 17 % (0-9); NEUT % 48 % (31-73); PLATELET COUNT 162 x10^3/uL (140-400); RED BLOOD COUNT 3.14 x10^6/uL (4.30-5.70); WHITE BLOOD COUNT 8.5 x10^3/uL (4.0-11.0)
[2017-02-13] MEDS: LACTULOSE 20 GM/30 ML SOLUTION. PO SCH ×5 (05:37→20:14)
[2017-02-13 07:00] VITALS: BP 149/70
[2017-02-13] MEDS: INSULIN ASPART 300 UNITS/3 ML INSULN.PEN SQ SCH ×3 (08:00→18:09)
--- NOTE | 2017-02-13 10:20 | PDOC ---
PROGRESS NOTES Chief Complaint Chief Complaint cc: Coffee-ground emesis and blood in stool -CAD Hypertension -COPD -Oxygen use -GERD -DM -Anemia -Cirrhosis -Orthopedic surgeries -Pressure ulcers -Cirrhosis -Lymphoma History of Present Illness History of Present Illness fever on 4L oxygen Vitals Vitals Vital Signs Date Time Temp Pulse Resp B/P Pulse Ox O2 Delivery O2 Flow Rate FiO2 02/13/17 07:00 99 20 149/70 Nasal Cannula 4.0 02/13/17 03:00 98.8 98 98.8 Physical Exam General: Cooperative, No acute distress Heart: Regular rate, Normal S1, Normal S2 Lungs: Clear, Other (No chest retractions) Abdomen: Soft, No tenderness Extremities: No clubbing, No cyanosis Skin: No rashes, Other ( Lower extremity findings concurrent with venous stasis ) Labs LABS Laboratory Tests Test 02/12/17 11:11 02/12/17 16:58 02/12/17 21:43 02/13/17 03:00 Glucose (Fingerstick) 139mg/dL (70-99) 134mg/dL (70-99) 133mg/dL (70-99) White Blood Count 8.5x10^3/uL (4.0-11.0) Red Blood Count 3.14x10^6/uL (4.30-5.70) Hemoglobin 10.7g/dL (13.0-17.5) Hematocrit 32.8% (39.0-53.0) Mean Corpuscular Volume 105fL (79-100) Mean Corpuscular Hemoglobin 34pg (25-35) Mean Corpuscular Hemoglobin Concent 33g/dL (31-37) Red Cell Distribution Width 15.0% (11.5-14.5) Platelet Count 162x10^3/uL (140-400) Neutrophils (%) (Auto) 48% (31-73) Lymphocytes (%) (Auto) 32% (24-48) Monocytes (%) (Auto) 17% (0-9) Eosinophils (%) (Auto) 2% (0-3) Basophils (%) (Auto) 1% (0-3) Neutrophils # (Auto) 4.1x10^3uL (1.8-7.7) Lymphocytes # (Auto) 2.7x10^3/uL (1.0-4.8) Monocytes # (Auto) 1.4x10^3/uL (0.0-1.1) Eosinophils # (Auto) 0.2x10^3/uL (0.0-0.7) Basophils # (Auto) 0.1x10^3/uL (0.0-0.2) Assessment and Plan Assessmemt and Plan Problems Medical Problems: (1) GI bleed Status: Acute Problems: Comment Review of Relevant I have reviewed the following items sandie (where applicable) has been applied. Labs Laboratory Tests Test 02/11/17 12:16 02/11/17 13:55 02/11/17 16:45 02/11/17 20:46 Glucose (Fingerstick) 163mg/dL (70-99) 159mg/dL (70-99) 198mg/dL (70-99) Iron Level 100ug/dL (65-175) Total Iron Binding Capacity 145ug/dL (250-450) Iron Saturation 69% (15-34) Ammonia 101mcmol/L (11-34) Tumor Marker Alpha Fetoprotein 1.9ng/mL (0.0-8.3) Test 02/12/17 05:00 02/12/17 07:51 02/12/17 11:11 02/12/17 16:58 White Blood Count 8.4x10^3/uL (4.0-11.0) Red Blood Count 3.17x10^6/uL (4.30-5.70) Hemoglobin 10.9g/dL (13.0-17.5) Hematocrit 32.9% (39.0-53.0) Mean Corpuscular Volume 104fL (79-100) Mean Corpuscular Hemoglobin 34pg (25-35) Mean Corpuscular Hemoglobin Concent 33g/dL (31-37) Red Cell Distribution Width 14.7% (11.5-14.5) Platelet Count 177x10^3/uL (140-400) Neutrophils (%) (Auto) 48% (31-73) Lymphocytes (%) (Auto) 31% (24-48) Monocytes (%) (Auto) 17% (0-9) Eosinophils (%) (Auto) 3% (0-3) Basophils (%) (Auto) 1% (0-3) Neutrophils # (Auto) 4.0x10^3uL (1.8-7.7) Lymphocytes # (Auto) 2.6x10^3/uL (1.0-4.8) Monocytes # (Auto) 1.4x10^3/uL (0.0-1.1) Eosinophils # (Auto) 0.2x10^3/uL (0.0-0.7) Basophils # (Auto) 0.1x10^3/uL (0.0-0.2) Reticulocyte Count (auto) 1.2% (0.5-2.5) Haptoglobin 55mg/dL (34-200) Ammonia 67mcmol/L (11-34) Glucose (Fingerstick) 116mg/dL (70-99) 139mg/dL (70-99) 134mg/dL (70-99) Test 02/12/17 21:43 02/13/17 03:00 Glucose (Fingerstick) 133mg/dL (70-99) White Blood Count 8.5x10^3/uL (4.0-11.0) Red Blood Count 3.14x10^6/uL (4.30-5.70) Hemoglobin 10.7g/dL (13.0-17.5) Hematocrit 32.8% (39.0-53.0) Mean Corpuscular Volume 105fL (79-100) Mean Corpuscular Hemoglobin 34pg (25-35) Mean Corpuscular Hemoglobin Concent 33g/dL (31-37) Red Cell Distribution Width 15.0% (11.5-14.5) Platelet Count 162x10^3/uL (140-400) Neutrophils (%) (Auto) 48% (31-73) Lymphocytes (%) (Auto) 32% (24-48) Monocytes (%) (Auto) 17% (0-9) Eosinophils (%) (Auto) 2% (0-3) Basophils (%) (Auto) 1% (0-3) Neutrophils # (Auto) 4.1x10^3uL (1.8-7.7) Lymphocytes # (Auto) 2.7x10^3/uL (1.0-4.8) Monocytes # (Auto) 1.4x10^3/uL (0.0-1.1) Eosinophils # (Auto) 0.2x10^3/uL (0.0-0.7) Basophils # (Auto) 0.1x10^3/uL (0.0-0.2) Laboratory Tests Test 02/12/17 11:11 02/12/17 16:58 02/12/17 21:43 02/13/17 03:00 Glucose (Fingerstick) 139mg/dL (70-99) 134mg/dL (70-99) 133mg/dL (70-99) White Blood Count 8.5x10^3/uL (4.0-11.0) Red Blood Count 3.14x10^6/uL (4.30-5.70) Hemoglobin 10.7g/dL (13.0-17.5) Hematocrit 32.8% (39.0-53.0) Mean Corpuscular Volume 105fL (79-100) Mean Corpuscular Hemoglobin 34pg (25-35) Mean Corpuscular Hemoglobin Concent 33g/dL (31-37) Red Cell Distribution Width 15.0% (11.5-14.5) Platelet Count 162x10^3/uL (140-400) Neutrophils (%) (Auto) 48% (31-73) Lymphocytes (%) (Auto) 32% (24-48) Monocytes (%) (Auto) 17% (0-9) Eosinophils (%) (Auto) 2% (0-3) Basophils (%) (Auto) 1% (0-3) Neutrophils # (Auto) 4.1x10^3uL (1.8-7.7) Lymphocytes # (Auto) 2.7x10^3/uL (1.0-4.8) Monocytes # (Auto) 1.4x10^3/uL (0.0-1.1) Eosinophils # (Auto) 0.2x10^3/uL (0.0-0.7) Basophils # (Auto) 0.1x10^3/uL (0.0-0.2) Medications Current Medications Pantoprazole Sodium/Sodium Chloride (Protonix Iv/Iv Sodium Chloride 0.9% 100ml) 100 ml @ 10 mls/hr Q10H IV Last administered on 02/10/17t 22:45; Start at 12:45; Stop 02/11/17 at 12:13; Status DC Pantoprazole Sodium (Protonix Vial) 80 mg 1X ONCE IVP Last administered on 13:43; Start 02/10/17 at 12:45; Stop 02/10/17 at 12:46; Status DC Iohexol (Omnipaque 300 Mg/ml) 75 ml 1X ONCE IV Last administered on 02/10/17 14:11; Start 02/10/17 at 14:00; Stop 02/10/17 at 14:01; Status DC Info 1 each 1 each PRN DAILY PRN MC SEE COMMENTS; Start 02/10/17 at 14:00; Stop 02/12/17 at 13:59; Status DC Octreotide Acetate/Sodium Chloride (Sandostatin/Iv Sodium Chloride 0.9% 100ml) 101 ml @ 0 mls/hr CONT PRN IV SEE I/O RECORD Last administered on 02/10/17 16: 40; Start 02/10/17 at 15:00; Stop 02/11/17 at 12:13; Status DC Octreotide Acetate 100 mcg 100 mcg 1X ONCE IV Last administered on 02/10/17 16:34; Start 02/10/17 at 15:00; Stop 02/10/17 at 15:10; Status DC Ceftriaxone Sodium (Rocephin 1gm Ivpb For Omni) 50 ml @ 100 mls/hr 1X ONCE IV Last administered on 02/10/17 16:06; Start 02/10/17 at 15:00; Stop 02/10/17 at 15:29; Status DC Ondansetron HCl (Zofran) 4 mg PRN Q8HRS PRN IV NAUSEA/VOMITING; Start 02/10/17 at 15:45; Stop 02/11/17 at 15:44; Status DC Fentanyl Citrate (Fentanyl 2ml Vial) 50 mcg PRN Q1HR PRN IV PAIN; Start at 15:45; Stop 02/11/17 at 15:44; Status DC Albuterol/ Ipratropium (Duoneb) 3 ml RTQID NEB Last administered on 02/11/17 15:19; Start 02/10/17 at 16:00; Stop 02/11/17 at 15:59; Status DC Insulin Aspart (Novolog) 0-5 UNITS TIDWMEALS SQ ; Start 02/10/17 at 17:00 Dextrose 12.5 gm 12.5 gm PRN Q15MIN PRN IV SEE COMMENTS; Start 02/10/17 at 15: 45 Lactated Ringer's (Iv Lactated Ringers) 1,000 ml @ 75 mls/hr 1X ONCE IV ; Start 02/11/17 at 10:45; Stop 02/12/17 at 00:04; Status DC Glycopyrrolate 1 mg 1 mg STK-MED ONCE .ROUTE ; Start 02/11/17 at 11:01; Stop at 11:02; Status DC Propofol (Diprivan) 20 ml @ As Directed STK-MED ONCE IV ; Start 02/11/17 at 11: 02; Stop 02/11/17 at 11:03; Status DC Lidocaine HCl (Lidocaine Pf 2% Vial) 5 ml STK-MED ONCE .ROUTE ; Start 02/11/17 at 11:02; Stop 02/11/17 at 11:03; Status DC Lactulose 20 gm 5XDAY PO Last administered on 02/13/17t 05:37; Start 02/11/17 at 18:00 Ondansetron HCl (Zofran) 8 mg PRN Q8HRS PRN IV NAUSEA/VOMITING Last administered on 02/11/17t 23:55; Start 02/11/17 at 23:45 Acetaminophen (Tylenol) 650 mg PRN Q6HRS PRN PO MILD PAIN / TEMP; Start at 23:30 Vitals/I & O Vital Sign - Last 24 Hours 02/12/17 02/12/17 02/12/17 02/12/17 11:00 15:00 19:00 20:00 Temp 98.3 98.7 100.6 98.3 98.7 100.6 Pulse 87 92 87 Resp 20 20 B/P 160/71 157/76 167/64 Pulse Ox 95 97 98 O2 Delivery Nasal Cannula Nasal Cannula Nasal Cannula Nasal Cannula O2 Flow Rate 4.0 4.0 4.0 4.0 02/12/17 02/13/17 02/13/17 23:00 03:00 07:00 Temp 99.9 98.8 99.9 98.8 Pulse 88 84 99 Resp 20 20 20 B/P 119/68 148/65 149/70 Pulse Ox 97 98 O2 Delivery Nasal Cannula Nasal Cannula Nasal Cannula O2 Flow Rate 4.0 4.0 4.0 Intake and Output 02/12/17 02/12/17 02/13/17 15:00 23:00 07:00 Output Total 225 ml Balance -225 ml WHITNEY SINGH MD Feb 13, 2017 10:20
[2017-02-13 11:00] VITALS: BP 148/84
[2017-02-13 14:11] LABS: HEP A IGM ABDY Negative (Negative)
--- NOTE | 2017-02-13 14:16 | PDOC ---
SURGICAL PROGRESS NOTE Subjective sleeping soundly I did not wake him Vital Signs Vital Signs Date Time Temp Pulse Resp B/P Pulse Ox O2 Delivery O2 Flow Rate FiO2 02/13/17 11:00 98.1 126 20 148/84 Nasal Cannula 4.0 98.1 02/13/17 03:00 98 I&O Intake and Output 02/13/17 07:00 Output Total 225 ml Balance -225 ml Output Urine Total 225 ml # Voids 1 PATIENT HAS A PIERCE: No Labs Laboratory Tests Test 02/11/17 16:45 02/11/17 20:46 02/12/17 05:00 02/12/17 07:51 Glucose (Fingerstick) 159mg/dL (70-99) 198mg/dL (70-99) 116mg/dL (70-99) White Blood Count 8.4x10^3/uL (4.0-11.0) Red Blood Count 3.17x10^6/uL (4.30-5.70) Hemoglobin 10.9g/dL (13.0-17.5) Hematocrit 32.9% (39.0-53.0) Mean Corpuscular Volume 104fL (79-100) Mean Corpuscular Hemoglobin 34pg (25-35) Mean Corpuscular Hemoglobin Concent 33g/dL (31-37) Red Cell Distribution Width 14.7% (11.5-14.5) Platelet Count 177x10^3/uL (140-400) Neutrophils (%) (Auto) 48% (31-73) Lymphocytes (%) (Auto) 31% (24-48) Monocytes (%) (Auto) 17% (0-9) Eosinophils (%) (Auto) 3% (0-3) Basophils (%) (Auto) 1% (0-3) Neutrophils # (Auto) 4.0x10^3uL (1.8-7.7) Lymphocytes # (Auto) 2.6x10^3/uL (1.0-4.8) Monocytes # (Auto) 1.4x10^3/uL (0.0-1.1) Eosinophils # (Auto) 0.2x10^3/uL (0.0-0.7) Basophils # (Auto) 0.1x10^3/uL (0.0-0.2) Reticulocyte Count (auto) 1.2% (0.5-2.5) Haptoglobin 55mg/dL (34-200) Ammonia 67mcmol/L (11-34) Hepatitis A IgM Antibody Negative (Negative) Hepatitis B Surface Antigen Negative (Negative) Hepatitis B Core IgM Antibody Negative (Negative) Hepatitis C Antibody <0.1s/co ratio (0.0-0.9) Test 02/12/17 11:11 02/12/17 16:58 02/12/17 21:43 02/13/17 03:00 Glucose (Fingerstick) 139mg/dL (70-99) 134mg/dL (70-99) 133mg/dL (70-99) White Blood Count 8.5x10^3/uL (4.0-11.0) Red Blood Count 3.14x10^6/uL (4.30-5.70) Hemoglobin 10.7g/dL (13.0-17.5) Hematocrit 32.8% (39.0-53.0) Mean Corpuscular Volume 105fL (79-100) Mean Corpuscular Hemoglobin 34pg (25-35) Mean Corpuscular Hemoglobin Concent 33g/dL (31-37) Red Cell Distribution Width 15.0% (11.5-14.5) Platelet Count 162x10^3/uL (140-400) Neutrophils (%) (Auto) 48% (31-73) Lymphocytes (%) (Auto) 32% (24-48) Monocytes (%) (Auto) 17% (0-9) Eosinophils (%) (Auto) 2% (0-3) Basophils (%) (Auto) 1% (0-3) Neutrophils # (Auto) 4.1x10^3uL (1.8-7.7) Lymphocytes # (Auto) 2.7x10^3/uL (1.0-4.8) Monocytes # (Auto) 1.4x10^3/uL (0.0-1.1) Eosinophils # (Auto) 0.2x10^3/uL (0.0-0.7) Basophils # (Auto) 0.1x10^3/uL (0.0-0.2) Test 02/13/17 08:03 02/13/17 10:36 Glucose (Fingerstick) 97mg/dL (70-99) 112mg/dL (70-99) Laboratory Tests Test 02/12/17 16:58 02/12/17 21:43 02/13/17 03:00 02/13/17 08:03 Glucose (Fingerstick) 134mg/dL (70-99) 133mg/dL (70-99) 97mg/dL (70-99) White Blood Count 8.5x10^3/uL (4.0-11.0) Red Blood Count 3.14x10^6/uL (4.30-5.70) Hemoglobin 10.7g/dL (13.0-17.5) Hematocrit 32.8% (39.0-53.0) Mean Corpuscular Volume 105fL (79-100) Mean Corpuscular Hemoglobin 34pg (25-35) Mean Corpuscular Hemoglobin Concent 33g/dL (31-37) Red Cell Distribution Width 15.0% (11.5-14.5) Platelet Count 162x10^3/uL (140-400) Neutrophils (%) (Auto) 48% (31-73) Lymphocytes (%) (Auto) 32% (24-48) Monocytes (%) (Auto) 17% (0-9) Eosinophils (%) (Auto) 2% (0-3) Basophils (%) (Auto) 1% (0-3) Neutrophils # (Auto) 4.1x10^3uL (1.8-7.7) Lymphocytes # (Auto) 2.7x10^3/uL (1.0-4.8) Monocytes # (Auto) 1.4x10^3/uL (0.0-1.1) Eosinophils # (Auto) 0.2x10^3/uL (0.0-0.7) Basophils # (Auto) 0.1x10^3/uL (0.0-0.2) Test 02/13/17 10:36 Glucose (Fingerstick) 112mg/dL (70-99) Problem List Problems Medical Problems: (1) GI bleed Status: Acute Assessment/Plan GI bleed stable no new surgical recs Problems: BERNARDO GRANT MD Feb 13, 2017 14:16
[2017-02-13 15:00] VITALS: BP 159/72
--- NOTE | 2017-02-13 15:16 | PDOC ---
G I PROGRESS NOTE Subjective No complaints. Had to awaken. Staff unsure if awake all night. Objective No reports of any bleeding. Physical Exam Lungs clear. RRR Abdomen soft, obese, not tender. Some asterixis. Review of Relevant I have reviewed the following items sandie (where applicable) has been applied. Labs Laboratory Tests Test 02/11/17 16:45 02/11/17 20:46 02/12/17 05:00 02/12/17 07:51 Glucose (Fingerstick) 159mg/dL (70-99) 198mg/dL (70-99) 116mg/dL (70-99) White Blood Count 8.4x10^3/uL (4.0-11.0) Red Blood Count 3.17x10^6/uL (4.30-5.70) Hemoglobin 10.9g/dL (13.0-17.5) Hematocrit 32.9% (39.0-53.0) Mean Corpuscular Volume 104fL (79-100) Mean Corpuscular Hemoglobin 34pg (25-35) Mean Corpuscular Hemoglobin Concent 33g/dL (31-37) Red Cell Distribution Width 14.7% (11.5-14.5) Platelet Count 177x10^3/uL (140-400) Neutrophils (%) (Auto) 48% (31-73) Lymphocytes (%) (Auto) 31% (24-48) Monocytes (%) (Auto) 17% (0-9) Eosinophils (%) (Auto) 3% (0-3) Basophils (%) (Auto) 1% (0-3) Neutrophils # (Auto) 4.0x10^3uL (1.8-7.7) Lymphocytes # (Auto) 2.6x10^3/uL (1.0-4.8) Monocytes # (Auto) 1.4x10^3/uL (0.0-1.1) Eosinophils # (Auto) 0.2x10^3/uL (0.0-0.7) Basophils # (Auto) 0.1x10^3/uL (0.0-0.2) Reticulocyte Count (auto) 1.2% (0.5-2.5) Haptoglobin 55mg/dL (34-200) Ammonia 67mcmol/L (11-34) Hepatitis A IgM Antibody Negative (Negative) Hepatitis B Surface Antigen Negative (Negative) Hepatitis B Core IgM Antibody Negative (Negative) Hepatitis C Antibody <0.1s/co ratio (0.0-0.9) Test 02/12/17 11:11 02/12/17 16:58 02/12/17 21:43 02/13/17 03:00 Glucose (Fingerstick) 139mg/dL (70-99) 134mg/dL (70-99) 133mg/dL (70-99) White Blood Count 8.5x10^3/uL (4.0-11.0) Red Blood Count 3.14x10^6/uL (4.30-5.70) Hemoglobin 10.7g/dL (13.0-17.5) Hematocrit 32.8% (39.0-53.0) Mean Corpuscular Volume 105fL (79-100) Mean Corpuscular Hemoglobin 34pg (25-35) Mean Corpuscular Hemoglobin Concent 33g/dL (31-37) Red Cell Distribution Width 15.0% (11.5-14.5) Platelet Count 162x10^3/uL (140-400) Neutrophils (%) (Auto) 48% (31-73) Lymphocytes (%) (Auto) 32% (24-48) Monocytes (%) (Auto) 17% (0-9) Eosinophils (%) (Auto) 2% (0-3) Basophils (%) (Auto) 1% (0-3) Neutrophils # (Auto) 4.1x10^3uL (1.8-7.7) Lymphocytes # (Auto) 2.7x10^3/uL (1.0-4.8) Monocytes # (Auto) 1.4x10^3/uL (0.0-1.1) Eosinophils # (Auto) 0.2x10^3/uL (0.0-0.7) Basophils # (Auto) 0.1x10^3/uL (0.0-0.2) Test 02/13/17 08:03 02/13/17 10:36 Glucose (Fingerstick) 97mg/dL (70-99) 112mg/dL (70-99) Laboratory Tests Test 02/12/17 16:58 02/12/17 21:43 02/13/17 03:00 02/13/17 08:03 Glucose (Fingerstick) 134mg/dL (70-99) 133mg/dL (70-99) 97mg/dL (70-99) White Blood Count 8.5x10^3/uL (4.0-11.0) Red Blood Count 3.14x10^6/uL (4.30-5.70) Hemoglobin 10.7g/dL (13.0-17.5) Hematocrit 32.8% (39.0-53.0) Mean Corpuscular Volume 105fL (79-100) Mean Corpuscular Hemoglobin 34pg (25-35) Mean Corpuscular Hemoglobin Concent 33g/dL (31-37) Red Cell Distribution Width 15.0% (11.5-14.5) Platelet Count 162x10^3/uL (140-400) Neutrophils (%) (Auto) 48% (31-73) Lymphocytes (%) (Auto) 32% (24-48) Monocytes (%) (Auto) 17% (0-9) Eosinophils (%) (Auto) 2% (0-3) Basophils (%) (Auto) 1% (0-3) Neutrophils # (Auto) 4.1x10^3uL (1.8-7.7) Lymphocytes # (Auto) 2.7x10^3/uL (1.0-4.8) Monocytes # (Auto) 1.4x10^3/uL (0.0-1.1) Eosinophils # (Auto) 0.2x10^3/uL (0.0-0.7) Basophils # (Auto) 0.1x10^3/uL (0.0-0.2) Test 02/13/17 10:36 Glucose (Fingerstick) 112mg/dL (70-99) Medications Current Medications Pantoprazole Sodium/Sodium Chloride (Protonix Iv/Iv Sodium Chloride 0.9% 100ml) 100 ml @ 10 mls/hr Q10H IV Last administered on 02/10/17 22:45; Start at 12:45; Stop 02/11/17 at 12:13; Status DC Pantoprazole Sodium (Protonix Vial) 80 mg 1X ONCE IVP Last administered on 13:43; Start 02/10/17 at 12:45; Stop 02/10/17 at 12:46; Status DC Iohexol (Omnipaque 300 Mg/ml) 75 ml 1X ONCE IV Last administered on 02/10/17 14:11; Start 02/10/17 at 14:00; Stop 02/10/17 at 14:01; Status DC Info 1 each 1 each PRN DAILY PRN MC SEE COMMENTS; Start 02/10/17 at 14:00; Stop 02/12/17 at 13:59; Status DC Octreotide Acetate/Sodium Chloride (Sandostatin/Iv Sodium Chloride 0.9% 100ml) 101 ml @ 0 mls/hr CONT PRN IV SEE I/O RECORD Last administered on 02/10/17 16: 40; Start 02/10/17 at 15:00; Stop 02/11/17 at 12:13; Status DC Octreotide Acetate 100 mcg 100 mcg 1X ONCE IV Last administered on 02/10/17 16:34; Start 02/10/17 at 15:00; Stop 02/10/17 at 15:10; Status DC Ceftriaxone Sodium (Rocephin 1gm Ivpb For Omni) 50 ml @ 100 mls/hr 1X ONCE IV Last administered on 02/10/17 16:06; Start 02/10/17 at 15:00; Stop 02/10/17 at 15:29; Status DC Ondansetron HCl (Zofran) 4 mg PRN Q8HRS PRN IV NAUSEA/VOMITING; Start 02/10/17 at 15:45; Stop 02/11/17 at 15:44; Status DC Fentanyl Citrate (Fentanyl 2ml Vial) 50 mcg PRN Q1HR PRN IV PAIN; Start at 15:45; Stop 02/11/17 at 15:44; Status DC Albuterol/ Ipratropium (Duoneb) 3 ml RTQID NEB Last administered on 02/11/17 15:19; Start 02/10/17 at 16:00; Stop 02/11/17 at 15:59; Status DC Insulin Aspart (Novolog) 0-5 UNITS TIDWMEALS SQ ; Start 02/10/17 at 17:00 Dextrose 12.5 gm 12.5 gm PRN Q15MIN PRN IV SEE COMMENTS; Start 02/10/17 at 15: 45 Lactated Ringer's (Iv Lactated Ringers) 1,000 ml @ 75 mls/hr 1X ONCE IV ; Start 02/11/17 at 10:45; Stop 02/12/17 at 00:04; Status DC Glycopyrrolate 1 mg 1 mg STK-MED ONCE .ROUTE ; Start 02/11/17 at 11:01; Stop at 11:02; Status DC Propofol (Diprivan) 20 ml @ As Directed STK-MED ONCE IV ; Start 02/11/17 at 11: 02; Stop 02/11/17 at 11:03; Status DC Lidocaine HCl (Lidocaine Pf 2% Vial) 5 ml STK-MED ONCE .ROUTE ; Start 02/11/17 at 11:02; Stop 02/11/17 at 11:03; Status DC Lactulose 20 gm 5XDAY PO Last administered on 02/13/17t 10:43; Start 02/11/17 at 18:00 Ondansetron HCl (Zofran) 8 mg PRN Q8HRS PRN IV NAUSEA/VOMITING Last administered on 02/11/17t 23:55; Start 02/11/17 at 23:45 Acetaminophen (Tylenol) 650 mg PRN Q6HRS PRN PO MILD PAIN / TEMP; Start at 23:30 Vitals/I & O Vital Sign - Last 24 Hours 02/12/17 02/12/17 02/12/17 02/13/17 19:00 20:00 23:00 03:00 Temp 100.6 99.9 98.8 100.6 99.9 98.8 Pulse 87 88 84 Resp 20 20 20 B/P 167/64 119/68 148/65 Pulse Ox 98 97 98 O2 Delivery Nasal Cannula Nasal Cannula Nasal Cannula Nasal Cannula O2 Flow Rate 4.0 4.0 4.0 4.0 02/13/17 02/13/17 02/13/17 07:00 08:00 11:00 Temp 98.5 98.1 98.5 98.1 Pulse 99 126 Resp 20 20 B/P 149/70 148/84 O2 Delivery Nasal Cannula Nasal Cannula Nasal Cannula O2 Flow Rate 4.0 4.0 4.0 Intake and Output 02/12/17 02/12/17 02/13/17 15:00 23:00 07:00 Output Total 225 ml Balance -225 ml Problem List Problems Medical Problems: (1) GI bleed Status: Acute Assessment Chronic liver disease, likely cirrhotic and likely alcohol related (note negative hep serologies). Still encephalopathic. No evidence for any meaninful bleeding. Plan of Care: Continue current Tx, Mgmt Plan of Care Note Recheck ammonia. Consider adding Xifaxan if still up. ADONIS RUSSELL MD Feb 13, 2017 15:16
[2017-02-13] MEDS ORDERED: LACTULOSE 20 GM/30 ML SOLUTION. PO PRN (17:30)
--- NOTE | 2017-02-13 17:38 | PDOC ---
PROGRESS NOTES Chief Complaint Chief Complaint cc: Coffee-ground emesis and blood in stool Encephalopathy suspected alcoholic cirrhosis, s/p EGD, gastritis. CAD Hypertension COPD, chronic respiratory failure GERD DM Morbid obesity Plan encephalopathic, add lactulose and rifaximin Monitor hemoglobin PRASANNA, Anti mitochondrial ab pending SSI appreciate. GI recommendations prognosis guarded. History of Present Illness History of Present Illness low fever on 4L oxygen drowsy Vitals Vitals Vital Signs Date Time Temp Pulse Resp B/P Pulse Ox O2 Delivery O2 Flow Rate FiO2 02/13/17 15:00 98.4 159/72 Nasal Cannula 4.0 98.4 02/13/17 11:00 126 20 02/13/17 03:00 98 Physical Exam General: Alert, Cooperative, No acute distress Heart: Regular rate, Normal S1, Normal S2 Lungs: Clear, Other (No chest retractions) Abdomen: Soft, No tenderness Extremities: No clubbing, No cyanosis Skin: No rashes, Other ( Lower extremity findings concurrent with venous stasis ) Labs LABS Laboratory Tests Test 02/12/17 21:43 02/13/17 03:00 02/13/17 08:03 02/13/17 10:36 Glucose (Fingerstick) 133mg/dL (70-99) 97mg/dL (70-99) 112mg/dL (70-99) White Blood Count 8.5x10^3/uL (4.0-11.0) Red Blood Count 3.14x10^6/uL (4.30-5.70) Hemoglobin 10.7g/dL (13.0-17.5) Hematocrit 32.8% (39.0-53.0) Mean Corpuscular Volume 105fL (79-100) Mean Corpuscular Hemoglobin 34pg (25-35) Mean Corpuscular Hemoglobin Concent 33g/dL (31-37) Red Cell Distribution Width 15.0% (11.5-14.5) Platelet Count 162x10^3/uL (140-400) Neutrophils (%) (Auto) 48% (31-73) Lymphocytes (%) (Auto) 32% (24-48) Monocytes (%) (Auto) 17% (0-9) Eosinophils (%) (Auto) 2% (0-3) Basophils (%) (Auto) 1% (0-3) Neutrophils # (Auto) 4.1x10^3uL (1.8-7.7) Lymphocytes # (Auto) 2.7x10^3/uL (1.0-4.8) Monocytes # (Auto) 1.4x10^3/uL (0.0-1.1) Eosinophils # (Auto) 0.2x10^3/uL (0.0-0.7) Basophils # (Auto) 0.1x10^3/uL (0.0-0.2) Test 02/13/17 15:55 02/13/17 16:33 Ammonia 96mcmol/L (11-34) Glucose (Fingerstick) 193mg/dL (70-99) Assessment and Plan Assessmemt and Plan Problems Medical Problems: (1) GI bleed Status: Acute Problems: Comment Review of Relevant I have reviewed the following items sandie (where applicable) has been applied. Labs Laboratory Tests Test 02/11/17 20:46 02/12/17 05:00 02/12/17 07:51 02/12/17 11:11 Glucose (Fingerstick) 198mg/dL (70-99) 116mg/dL (70-99) 139mg/dL (70-99) White Blood Count 8.4x10^3/uL (4.0-11.0) Red Blood Count 3.17x10^6/uL (4.30-5.70) Hemoglobin 10.9g/dL (13.0-17.5) Hematocrit 32.9% (39.0-53.0) Mean Corpuscular Volume 104fL (79-100) Mean Corpuscular Hemoglobin 34pg (25-35) Mean Corpuscular Hemoglobin Concent 33g/dL (31-37) Red Cell Distribution Width 14.7% (11.5-14.5) Platelet Count 177x10^3/uL (140-400) Neutrophils (%) (Auto) 48% (31-73) Lymphocytes (%) (Auto) 31% (24-48) Monocytes (%) (Auto) 17% (0-9) Eosinophils (%) (Auto) 3% (0-3) Basophils (%) (Auto) 1% (0-3) Neutrophils # (Auto) 4.0x10^3uL (1.8-7.7) Lymphocytes # (Auto) 2.6x10^3/uL (1.0-4.8) Monocytes # (Auto) 1.4x10^3/uL (0.0-1.1) Eosinophils # (Auto) 0.2x10^3/uL (0.0-0.7) Basophils # (Auto) 0.1x10^3/uL (0.0-0.2) Reticulocyte Count (auto) 1.2% (0.5-2.5) Haptoglobin 55mg/dL (34-200) Ammonia 67mcmol/L (11-34) Hepatitis A IgM Antibody Negative (Negative) Hepatitis B Surface Antigen Negative (Negative) Hepatitis B Core IgM Antibody Negative (Negative) Hepatitis C Antibody <0.1s/co ratio (0.0-0.9) Test 02/12/17 16:58 02/12/17 21:43 02/13/17 03:00 02/13/17 08:03 Glucose (Fingerstick) 134mg/dL (70-99) 133mg/dL (70-99) 97mg/dL (70-99) White Blood Count 8.5x10^3/uL (4.0-11.0) Red Blood Count 3.14x10^6/uL (4.30-5.70) Hemoglobin 10.7g/dL (13.0-17.5) Hematocrit 32.8% (39.0-53.0) Mean Corpuscular Volume 105fL (79-100) Mean Corpuscular Hemoglobin 34pg (25-35) Mean Corpuscular Hemoglobin Concent 33g/dL (31-37) Red Cell Distribution Width 15.0% (11.5-14.5) Platelet Count 162x10^3/uL (140-400) Neutrophils (%) (Auto) 48% (31-73) Lymphocytes (%) (Auto) 32% (24-48) Monocytes (%) (Auto) 17% (0-9) Eosinophils (%) (Auto) 2% (0-3) Basophils (%) (Auto) 1% (0-3) Neutrophils # (Auto) 4.1x10^3uL (1.8-7.7) Lymphocytes # (Auto) 2.7x10^3/uL (1.0-4.8) Monocytes # (Auto) 1.4x10^3/uL (0.0-1.1) Eosinophils # (Auto) 0.2x10^3/uL (0.0-0.7) Basophils # (Auto) 0.1x10^3/uL (0.0-0.2) Test 02/13/17 10:36 02/13/17 15:55 02/13/17 16:33 Glucose (Fingerstick) 112mg/dL (70-99) 193mg/dL (70-99) Ammonia 96mcmol/L (11-34) Laboratory Tests Test 02/12/17 21:43 02/13/17 03:00 02/13/17 08:03 02/13/17 10:36 Glucose (Fingerstick) 133mg/dL (70-99) 97mg/dL (70-99) 112mg/dL (70-99) White Blood Count 8.5x10^3/uL (4.0-11.0) Red Blood Count 3.14x10^6/uL (4.30-5.70) Hemoglobin 10.7g/dL (13.0-17.5) Hematocrit 32.8% (39.0-53.0) Mean Corpuscular Volume 105fL (79-100) Mean Corpuscular Hemoglobin 34pg (25-35) Mean Corpuscular Hemoglobin Concent 33g/dL (31-37) Red Cell Distribution Width 15.0% (11.5-14.5) Platelet Count 162x10^3/uL (140-400) Neutrophils (%) (Auto) 48% (31-73) Lymphocytes (%) (Auto) 32% (24-48) Monocytes (%) (Auto) 17% (0-9) Eosinophils (%) (Auto) 2% (0-3) Basophils (%) (Auto) 1% (0-3) Neutrophils # (Auto) 4.1x10^3uL (1.8-7.7) Lymphocytes # (Auto) 2.7x10^3/uL (1.0-4.8) Monocytes # (Auto) 1.4x10^3/uL (0.0-1.1) Eosinophils # (Auto) 0.2x10^3/uL (0.0-0.7) Basophils # (Auto) 0.1x10^3/uL (0.0-0.2) Test 02/13/17 15:55 02/13/17 16:33 Ammonia 96mcmol/L (11-34) Glucose (Fingerstick) 193mg/dL (70-99) Medications Current Medications Pantoprazole Sodium/Sodium Chloride (Protonix Iv/Iv Sodium Chloride 0.9% 100ml) 100 ml @ 10 mls/hr Q10H IV Last administered on 02/10/17 22:45; Start at 12:45; Stop 02/11/17 at 12:13; Status DC Pantoprazole Sodium (Protonix Vial) 80 mg 1X ONCE IVP Last administered on 13:43; Start 02/10/17 at 12:45; Stop 02/10/17 at 12:46; Status DC Iohexol (Omnipaque 300 Mg/ml) 75 ml 1X ONCE IV Last administered on 02/10/17 14:11; Start 02/10/17 at 14:00; Stop 02/10/17 at 14:01; Status DC Info 1 each 1 each PRN DAILY PRN MC SEE COMMENTS; Start 02/10/17 at 14:00; Stop 02/12/17 at 13:59; Status DC Octreotide Acetate/Sodium Chloride (Sandostatin/Iv Sodium Chloride 0.9% 100ml) 101 ml @ 0 mls/hr CONT PRN IV SEE I/O RECORD Last administered on 02/10/17 16: 40; Start 02/10/17 at 15:00; Stop 02/11/17 at 12:13; Status DC Octreotide Acetate 100 mcg 100 mcg 1X ONCE IV Last administered on 02/10/17 16:34; Start 02/10/17 at 15:00; Stop 02/10/17 at 15:10; Status DC Ceftriaxone Sodium (Rocephin 1gm Ivpb For Omni) 50 ml @ 100 mls/hr 1X ONCE IV Last administered on 02/10/17 16:06; Start 02/10/17 at 15:00; Stop 02/10/17 at 15:29; Status DC Ondansetron HCl (Zofran) 4 mg PRN Q8HRS PRN IV NAUSEA/VOMITING; Start 02/10/17 at 15:45; Stop 02/11/17 at 15:44; Status DC Fentanyl Citrate (Fentanyl 2ml Vial) 50 mcg PRN Q1HR PRN IV PAIN; Start at 15:45; Stop 02/11/17 at 15:44; Status DC Albuterol/ Ipratropium (Duoneb) 3 ml RTQID NEB Last administered on 02/11/17 15:19; Start 02/10/17 at 16:00; Stop 02/11/17 at 15:59; Status DC Insulin Aspart (Novolog) 0-5 UNITS TIDWMEALS SQ ; Start 02/10/17 at 17:00 Dextrose 12.5 gm 12.5 gm PRN Q15MIN PRN IV SEE COMMENTS; Start 02/10/17 at 15: 45 Lactated Ringer's (Iv Lactated Ringers) 1,000 ml @ 75 mls/hr 1X ONCE IV ; Start 02/11/17 at 10:45; Stop 02/12/17 at 00:04; Status DC Glycopyrrolate 1 mg 1 mg STK-MED ONCE .ROUTE ; Start 02/11/17 at 11:01; Stop at 11:02; Status DC Propofol (Diprivan) 20 ml @ As Directed STK-MED ONCE IV ; Start 02/11/17 at 11: 02; Stop 02/11/17 at 11:03; Status DC Lidocaine HCl (Lidocaine Pf 2% Vial) 5 ml STK-MED ONCE .ROUTE ; Start 02/11/17 at 11:02; Stop 02/11/17 at 11:03; Status DC Lactulose 20 gm 5XDAY PO Last administered on 02/13/17 14:00; Start 02/11/17 at 18:00 Ondansetron HCl (Zofran) 8 mg PRN Q8HRS PRN IV NAUSEA/VOMITING Last administered on 02/11/17 23:55; Start 02/11/17 at 23:45 Acetaminophen (Tylenol) 650 mg PRN Q6HRS PRN PO MILD PAIN / TEMP; Start at 23:30 Vitals/I & O Vital Sign - Last 24 Hours 02/12/17 02/12/17 02/12/17 02/13/17 19:00 20:00 23:00 03:00 Temp 100.6 99.9 98.8 100.6 99.9 98.8 Pulse 87 88 84 Resp 20 20 20 B/P 167/64 119/68 148/65 Pulse Ox 98 97 98 O2 Delivery Nasal Cannula Nasal Cannula Nasal Cannula Nasal Cannula O2 Flow Rate 4.0 4.0 4.0 4.0 02/13/17 02/13/17 02/13/17 02/13/17 07:00 08:00 11:00 15:00 Temp 98.5 98.1 98.4 98.5 98.1 98.4 Pulse 99 126 Resp 20 20 B/P 149/70 148/84 159/72 O2 Delivery Nasal Cannula Nasal Cannula Nasal Cannula Nasal Cannula O2 Flow Rate 4.0 4.0 4.0 4.0 Intake and Output 02/12/17 02/12/17 02/13/17 15:00 23:00 07:00 Output Total 225 ml Balance -225 ml WHITNEY SINGH MD Feb 13, 2017 17:38
[2017-02-13 19:00] VITALS: BP 154/72
[2017-02-13 23:00] VITALS: BP 165/74
--- NOTE | 2017-02-14 01:23 | CONS ---
DATE OF CONSULTATION: 02/11/[address] Grant with a consultation dictation for Dr. Gutierrez. SUBJECTIVE: The patient is a 61-year-old morbidly obese gentleman who lives in a long-term. He was previously a heavy drinker and as a result has some cirrhotic changes in his liver. He experienced some coffee ground emesis and blood in his stool earlier today prompting a visit to the ED where a CAT scan was done showing some cirrhosis and some ascites. We were asked to see him for evaluation of same. PAST SURGICAL HISTORY: Left rotator cuff, knee surgeries, wrist surgery. PAST MEDICAL HISTORY: COPD, depression, diabetes, GERD, hypertension, lymphoma, alcohol abuse with subsequent cirrhosis. ALLERGIES: HE IS ALLERGIC TO CODEINE. ROUTINE MEDICATIONS: Listed on the reconciliation sheet. FAMILY HISTORY: Positive for some hypertension. SOCIAL HISTORY: He was a previous heavy smoker and drinker and no longer does either. REVIEW OF SYSTEMS: GENERAL: No chills or sweats. HEENT: No recent sore throat or earaches. CARDIAC: No chest pain or palpitations. RESPIRATORY: No productive cough or wheezing. GASTROINTESTINAL: See history of present illness. GENITOURINARY: No dysuria or increased frequency. EXTREMITIES: No muscle or joint pain, does have a history of orthopedic surgery. OBJECTIVE PHYSICAL EXAMINATION: GENERAL: Reveals a morbidly obese gentleman who is in no acute distress. VITAL SIGNS: He is afebrile at 98.2, heart rate 117, blood pressure 101/51. HEENT: Normocephalic. EOMs intact. NECK: Supple. LUNGS: Clear with distant breath sounds. HEART: Has an increased rate without extra sounds. ABDOMEN: Belly is morbidly obese with some mild tenderness without localization. GENITAL AND RECTAL: Deferred. EXTREMITIES: Showed no gross skeletal abnormalities. NEUROLOGIC: He is grossly intact. ADMITTING LABORATORY DATA: Showed hemoglobin of 12.6. Chemistries showed a total bilirubin of 1.8, alkaline phosphatase 292, lactic acid of 2.3. CT scan of the abdomen and pelvis shows a small volume of ascites with left inguinal hernia containing fluid, but no bowel or coronary artery disease and borderline splenomegaly. IMPRESSION: Coffee ground emesis and some bright red blood per rectum in this morbidly obese, previously heavy drinker with cirrhotic changes. Possible upper gastrointestinal bleeding from varices, gastritis, peptic ulcer disease. Possible rectal bleeding from hemorrhoids. The patient is scheduled for an EGD later today, we will await those results. No acute surgical recommendations. Thank you for asking us to see the patient and participate in his care. We will follow him with you during this hospitalization. BERNARDO GRANT MD DR: CRISTINO/vannessa JOB#: [id number] / [id number]
--- NOTE | 2017-02-14 01:28 | DS ---
DATE OF DISCHARGE: 02/12/2017 ADMISSION DIAGNOSIS: Gastrointestinal bleed. DISCHARGE DIAGNOSIS: Resolving gastrointestinal bleed (we found nonerosive gastritis on the EGD). HOSPITAL COURSE: The patient is a pleasant middle-aged male presented with a GI bleed and hematemesis and some blood in the stool. He used to drink heavily and does have a history of cirrhosis. To our surprise, he really did not have any esophageal varices, but he did have some nonerosive gastritis on the EGD. Basically, he did well. We discharged back to his detention. DISPOSITION: senior living. ACTIVITY: As tolerated. DIET: Low sodium. MEDICATIONS: Please see the MRAD. TOTAL TIME: 32 minutes. ZHOU GARCIA DO DR: JEROME/vannessa JOB#: [id number] / [id number]
[2017-02-14 03:00] VITALS: BP 160/74
[2017-02-14 04:33] LABS: BASO # 0.1 x10^3/uL (0.0-0.2); BASO % 1 % (0-3); EOS % 2 % (0-3); HEMOGLOBIN 10.3 g/dL (13.0-17.5); LYMPH # 2.6 x10^3/uL (1.0-4.8); LYMPH % 30 % (24-48); MEAN CORPUSCULAR HEMOGLOBIN 35 pg (25-35); MEAN CORPUSCULAR HGB CONC 33 g/dL (31-37); MEAN CORPUSCULAR VOLUME 104 fL (79-100); MONO % 15 % (0-9); NEUT % 53 % (31-73); PLATELET COUNT 151 x10^3/uL (140-400); RED BLOOD COUNT 2.99 x10^6/uL (4.30-5.70); RED CELL DISTRIBUTION WIDTH 14.9 % (11.5-14.5); WHITE BLOOD COUNT 8.7 x10^3/uL (4.0-11.0)
[2017-02-14] MEDS: LACTULOSE 20 GM/30 ML SOLUTION. PO SCH ×4 (06:00→17:22)
[2017-02-14 07:45] VITALS: BP 156/68
[2017-02-14] MEDS: INSULIN ASPART 300 UNITS/3 ML INSULN.PEN SQ SCH ×3 (08:00→17:28)
--- NOTE | 2017-02-14 08:52 | PDOC ---
SURGICAL PROGRESS NOTE Subjective sleeping, will awaken some pain at times, back does report some bleeding in stools at times Vital Signs Vital Signs Date Time Temp Pulse Resp B/P Pulse Ox O2 Delivery O2 Flow Rate FiO2 02/14/17 03:00 98.2 94 20 160/74 Nasal Cannula 4.0 98.2 I&O Intake and Output 02/14/17 07:00 Intake Total 800 ml Output Total 301 ml Balance 499 ml Intake Oral 800 ml Output Urine Total 300 ml Stool Total 1 ml # Voids 7 General: Alert, Oriented X3, Cooperative, No acute distress Abdomen: Soft, No tenderness Labs Laboratory Tests Test 02/12/17 11:11 02/12/17 16:58 02/12/17 21:43 02/13/17 03:00 Glucose (Fingerstick) 139mg/dL (70-99) 134mg/dL (70-99) 133mg/dL (70-99) White Blood Count 8.5x10^3/uL (4.0-11.0) Red Blood Count 3.14x10^6/uL (4.30-5.70) Hemoglobin 10.7g/dL (13.0-17.5) Hematocrit 32.8% (39.0-53.0) Mean Corpuscular Volume 105fL (79-100) Mean Corpuscular Hemoglobin 34pg (25-35) Mean Corpuscular Hemoglobin Concent 33g/dL (31-37) Red Cell Distribution Width 15.0% (11.5-14.5) Platelet Count 162x10^3/uL (140-400) Neutrophils (%) (Auto) 48% (31-73) Lymphocytes (%) (Auto) 32% (24-48) Monocytes (%) (Auto) 17% (0-9) Eosinophils (%) (Auto) 2% (0-3) Basophils (%) (Auto) 1% (0-3) Neutrophils # (Auto) 4.1x10^3uL (1.8-7.7) Lymphocytes # (Auto) 2.7x10^3/uL (1.0-4.8) Monocytes # (Auto) 1.4x10^3/uL (0.0-1.1) Eosinophils # (Auto) 0.2x10^3/uL (0.0-0.7) Basophils # (Auto) 0.1x10^3/uL (0.0-0.2) Test 02/13/17 08:03 02/13/17 10:36 02/13/17 15:55 02/13/17 16:33 Glucose (Fingerstick) 97mg/dL (70-99) 112mg/dL (70-99) 193mg/dL (70-99) Ammonia 96mcmol/L (11-34) Test 02/13/17 21:10 02/14/17 03:13 02/14/17 07:51 Glucose (Fingerstick) 148mg/dL (70-99) 147mg/dL (70-99) White Blood Count 8.7x10^3/uL (4.0-11.0) Red Blood Count 2.99x10^6/uL (4.30-5.70) Hemoglobin 10.3g/dL (13.0-17.5) Hematocrit 31.0% (39.0-53.0) Mean Corpuscular Volume 104fL (79-100) Mean Corpuscular Hemoglobin 35pg (25-35) Mean Corpuscular Hemoglobin Concent 33g/dL (31-37) Red Cell Distribution Width 14.9% (11.5-14.5) Platelet Count 151x10^3/uL (140-400) Neutrophils (%) (Auto) 53% (31-73) Lymphocytes (%) (Auto) 30% (24-48) Monocytes (%) (Auto) 15% (0-9) Eosinophils (%) (Auto) 2% (0-3) Basophils (%) (Auto) 1% (0-3) Neutrophils # (Auto) 4.6x10^3uL (1.8-7.7) Lymphocytes # (Auto) 2.6x10^3/uL (1.0-4.8) Monocytes # (Auto) 1.3x10^3/uL (0.0-1.1) Eosinophils # (Auto) 0.2x10^3/uL (0.0-0.7) Basophils # (Auto) 0.1x10^3/uL (0.0-0.2) Laboratory Tests Test 02/13/17 10:36 02/13/17 15:55 02/13/17 16:33 02/13/17 21:10 Glucose (Fingerstick) 112mg/dL (70-99) 193mg/dL (70-99) 148mg/dL (70-99) Ammonia 96mcmol/L (11-34) Test 02/14/17 03:13 02/14/17 07:51 White Blood Count 8.7x10^3/uL (4.0-11.0) Red Blood Count 2.99x10^6/uL (4.30-5.70) Hemoglobin 10.3g/dL (13.0-17.5) Hematocrit 31.0% (39.0-53.0) Mean Corpuscular Volume 104fL (79-100) Mean Corpuscular Hemoglobin 35pg (25-35) Mean Corpuscular Hemoglobin Concent 33g/dL (31-37) Red Cell Distribution Width 14.9% (11.5-14.5) Platelet Count 151x10^3/uL (140-400) Neutrophils (%) (Auto) 53% (31-73) Lymphocytes (%) (Auto) 30% (24-48) Monocytes (%) (Auto) 15% (0-9) Eosinophils (%) (Auto) 2% (0-3) Basophils (%) (Auto) 1% (0-3) Neutrophils # (Auto) 4.6x10^3uL (1.8-7.7) Lymphocytes # (Auto) 2.6x10^3/uL (1.0-4.8) Monocytes # (Auto) 1.3x10^3/uL (0.0-1.1) Eosinophils # (Auto) 0.2x10^3/uL (0.0-0.7) Basophils # (Auto) 0.1x10^3/uL (0.0-0.2) Glucose (Fingerstick) 147mg/dL (70-99) Problem List Problems Medical Problems: (1) GI bleed Status: Acute Assessment/Plan hgb stable supportive care no surgical plans Problems: PRATIMA SIMMONS [employer] Feb 14, 2017 08:52
[2017-02-14 10:50] VITALS: BP 150/60
--- NOTE | 2017-02-14 12:56 | PDOC ---
G I PROGRESS NOTE Reason for Follow-up CIRRHOSIS/CONFUSION Subjective Without new complaints Physical Exam Lungs clear CV S1 S2 ABD mildly distended, +BS Review of Relevant I have reviewed the following items sandie (where applicable) has been applied. Labs Laboratory Tests Test 02/12/17 16:58 02/12/17 21:43 02/13/17 03:00 02/13/17 08:03 Glucose (Fingerstick) 134mg/dL (70-99) 133mg/dL (70-99) 97mg/dL (70-99) White Blood Count 8.5x10^3/uL (4.0-11.0) Red Blood Count 3.14x10^6/uL (4.30-5.70) Hemoglobin 10.7g/dL (13.0-17.5) Hematocrit 32.8% (39.0-53.0) Mean Corpuscular Volume 105fL (79-100) Mean Corpuscular Hemoglobin 34pg (25-35) Mean Corpuscular Hemoglobin Concent 33g/dL (31-37) Red Cell Distribution Width 15.0% (11.5-14.5) Platelet Count 162x10^3/uL (140-400) Neutrophils (%) (Auto) 48% (31-73) Lymphocytes (%) (Auto) 32% (24-48) Monocytes (%) (Auto) 17% (0-9) Eosinophils (%) (Auto) 2% (0-3) Basophils (%) (Auto) 1% (0-3) Neutrophils # (Auto) 4.1x10^3uL (1.8-7.7) Lymphocytes # (Auto) 2.7x10^3/uL (1.0-4.8) Monocytes # (Auto) 1.4x10^3/uL (0.0-1.1) Eosinophils # (Auto) 0.2x10^3/uL (0.0-0.7) Basophils # (Auto) 0.1x10^3/uL (0.0-0.2) Test 02/13/17 10:36 02/13/17 15:55 02/13/17 16:33 02/13/17 21:10 Glucose (Fingerstick) 112mg/dL (70-99) 193mg/dL (70-99) 148mg/dL (70-99) Ammonia 96mcmol/L (11-34) Test 02/14/17 03:13 02/14/17 07:51 02/14/17 11:19 White Blood Count 8.7x10^3/uL (4.0-11.0) Red Blood Count 2.99x10^6/uL (4.30-5.70) Hemoglobin 10.3g/dL (13.0-17.5) Hematocrit 31.0% (39.0-53.0) Mean Corpuscular Volume 104fL (79-100) Mean Corpuscular Hemoglobin 35pg (25-35) Mean Corpuscular Hemoglobin Concent 33g/dL (31-37) Red Cell Distribution Width 14.9% (11.5-14.5) Platelet Count 151x10^3/uL (140-400) Neutrophils (%) (Auto) 53% (31-73) Lymphocytes (%) (Auto) 30% (24-48) Monocytes (%) (Auto) 15% (0-9) Eosinophils (%) (Auto) 2% (0-3) Basophils (%) (Auto) 1% (0-3) Neutrophils # (Auto) 4.6x10^3uL (1.8-7.7) Lymphocytes # (Auto) 2.6x10^3/uL (1.0-4.8) Monocytes # (Auto) 1.3x10^3/uL (0.0-1.1) Eosinophils # (Auto) 0.2x10^3/uL (0.0-0.7) Basophils # (Auto) 0.1x10^3/uL (0.0-0.2) Glucose (Fingerstick) 147mg/dL (70-99) 147mg/dL (70-99) Laboratory Tests Test 02/13/17 15:55 02/13/17 16:33 02/13/17 21:10 02/14/17 03:13 Ammonia 96mcmol/L (11-34) Glucose (Fingerstick) 193mg/dL (70-99) 148mg/dL (70-99) White Blood Count 8.7x10^3/uL (4.0-11.0) Red Blood Count 2.99x10^6/uL (4.30-5.70) Hemoglobin 10.3g/dL (13.0-17.5) Hematocrit 31.0% (39.0-53.0) Mean Corpuscular Volume 104fL (79-100) Mean Corpuscular Hemoglobin 35pg (25-35) Mean Corpuscular Hemoglobin Concent 33g/dL (31-37) Red Cell Distribution Width 14.9% (11.5-14.5) Platelet Count 151x10^3/uL (140-400) Neutrophils (%) (Auto) 53% (31-73) Lymphocytes (%) (Auto) 30% (24-48) Monocytes (%) (Auto) 15% (0-9) Eosinophils (%) (Auto) 2% (0-3) Basophils (%) (Auto) 1% (0-3) Neutrophils # (Auto) 4.6x10^3uL (1.8-7.7) Lymphocytes # (Auto) 2.6x10^3/uL (1.0-4.8) Monocytes # (Auto) 1.3x10^3/uL (0.0-1.1) Eosinophils # (Auto) 0.2x10^3/uL (0.0-0.7) Basophils # (Auto) 0.1x10^3/uL (0.0-0.2) Test 02/14/17 07:51 02/14/17 11:19 Glucose (Fingerstick) 147mg/dL (70-99) 147mg/dL (70-99) Medications Current Medications Pantoprazole Sodium/Sodium Chloride (Protonix Iv/Iv Sodium Chloride 0.9% 100ml) 100 ml @ 10 mls/hr Q10H IV Last administered on 02/10/17 22:45; Start at 12:45; Stop 02/11/17 at 12:13; Status DC Pantoprazole Sodium (Protonix Vial) 80 mg 1X ONCE IVP Last administered on 13:43; Start 02/10/17 at 12:45; Stop 02/10/17 at 12:46; Status DC Iohexol (Omnipaque 300 Mg/ml) 75 ml 1X ONCE IV Last administered on 02/10/17 14:11; Start 02/10/17 at 14:00; Stop 02/10/17 at 14:01; Status DC Info 1 each 1 each PRN DAILY PRN MC SEE COMMENTS; Start 02/10/17 at 14:00; Stop 02/12/17 at 13:59; Status DC Octreotide Acetate/Sodium Chloride (Sandostatin/Iv Sodium Chloride 0.9% 100ml) 101 ml @ 0 mls/hr CONT PRN IV SEE I/O RECORD Last administered on 02/10/17 16: 40; Start 02/10/17 at 15:00; Stop 02/11/17 at 12:13; Status DC Octreotide Acetate 100 mcg 100 mcg 1X ONCE IV Last administered on 02/10/17 16:34; Start 02/10/17 at 15:00; Stop 02/10/17 at 15:10; Status DC Ceftriaxone Sodium (Rocephin 1gm Ivpb For Omni) 50 ml @ 100 mls/hr 1X ONCE IV Last administered on 02/10/17 16:06; Start 02/10/17 at 15:00; Stop 02/10/17 at 15:29; Status DC Ondansetron HCl (Zofran) 4 mg PRN Q8HRS PRN IV NAUSEA/VOMITING; Start 02/10/17 at 15:45; Stop 02/11/17 at 15:44; Status DC Fentanyl Citrate (Fentanyl 2ml Vial) 50 mcg PRN Q1HR PRN IV PAIN; Start at 15:45; Stop 02/11/17 at 15:44; Status DC Albuterol/ Ipratropium (Duoneb) 3 ml RTQID NEB Last administered on 02/11/17 15:19; Start 02/10/17 at 16:00; Stop 02/11/17 at 15:59; Status DC Insulin Aspart (Novolog) 0-5 UNITS TIDWMEALS SQ Last administered on 02/13/17 18:09; Start 02/10/17 at 17:00 Dextrose 12.5 gm 12.5 gm PRN Q15MIN PRN IV SEE COMMENTS; Start 02/10/17 at 15: 45 Lactated Ringer's (Iv Lactated Ringers) 1,000 ml @ 75 mls/hr 1X ONCE IV ; Start 02/11/17 at 10:45; Stop 02/12/17 at 00:04; Status DC Glycopyrrolate 1 mg 1 mg STK-MED ONCE .ROUTE ; Start 02/11/17 at 11:01; Stop at 11:02; Status DC Propofol (Diprivan) 20 ml @ As Directed STK-MED ONCE IV ; Start 02/11/17 at 11: 02; Stop 02/11/17 at 11:03; Status DC Lidocaine HCl (Lidocaine Pf 2% Vial) 5 ml STK-MED ONCE .ROUTE ; Start 02/11/17 at 11:02; Stop 02/11/17 at 11:03; Status DC Lactulose 20 gm 5XDAY PO Last administered on 02/14/17 10:00; Start 02/11/17 at 18:00 Ondansetron HCl (Zofran) 8 mg PRN Q8HRS PRN IV NAUSEA/VOMITING Last administered on 02/11/17 23:55; Start 02/11/17 at 23:45 Acetaminophen (Tylenol) 650 mg PRN Q6HRS PRN PO MILD PAIN / TEMP Last administered on 02/13/17 22:38; Start 02/12/17 at 23:30 Lactulose 20 gm PRN DAILY PRN PO CONSTIPATION; Start 02/13/17 at 17:30 Vitals/I & O Vital Sign - Last 24 Hours 02/13/17 02/13/17 02/13/17 02/13/17 15:00 19:00 20:00 23:00 Temp 98.4 97.9 98.6 98.4 97.9 98.6 Pulse 94 96 Resp 20 20 B/P 159/72 154/72 165/74 O2 Delivery Nasal Cannula Nasal Cannula Nasal Cannula Nasal Cannula O2 Flow Rate 4.0 4.0 4.0 4.0 02/14/17 02/14/17 02/14/17 03:00 07:45 10:50 Temp 98.2 97.9 97.9 98.2 97.9 97.9 Pulse 94 100 101 Resp 20 20 20 B/P 160/74 156/68 150/60 Pulse Ox 96 96 O2 Delivery Nasal Cannula Nasal Cannula Nasal Cannula O2 Flow Rate 4.0 4.0 4.0 Intake and Output 02/13/17 02/13/17 02/14/17 14:59 22:59 06:59 Intake Total 200 ml 600 ml Output Total 1 ml 300 ml Balance 200 ml 599 ml -300 ml Problem List Problems Medical Problems: (1) GI bleed Status: Acute Assessment Cirrhosis- with hyper ammonemia, lactulose care home, prognosis guarded, disposition plans unclear BLANCA FRANCO MD Feb 14, 2017 12:55
--- NOTE | 2017-02-14 14:57 | PDOC ---
PROGRESS NOTES Chief Complaint Chief Complaint cc: upper gi bleed Encephalopathy suspected alcoholic cirrhosis, s/p EGD, gastritis. CAD Hypertension COPD, chronic respiratory failure GERD DM Morbid obesity BMI 49.5 History of Present Illness History of Present Illness encephalopathic, add lactulose and rifaximin Monitor hemoglobin PRASANNA, Anti mitochondrial ab pending SSI appreciate. GI recommendations prognosis guarded. no event on 4L oxygen drowsy Vitals Vitals Vital Signs Date Time Temp Pulse Resp B/P Pulse Ox O2 Delivery O2 Flow Rate FiO2 02/14/17 10:50 97.9 101 20 150/60 96 Nasal Cannula 4.0 97.9 Physical Exam General: Alert, Oriented X3, Cooperative, No acute distress Heart: Regular rate, Normal S1, Normal S2 Lungs: Clear, Other (No chest retractions) Abdomen: Soft, No tenderness Extremities: No clubbing, No cyanosis Skin: No rashes, Other ( Lower extremity findings concurrent with venous stasis ) Labs LABS Laboratory Tests Test 02/13/17 15:55 02/13/17 16:33 02/13/17 21:10 02/14/17 03:13 Ammonia 96mcmol/L (11-34) Glucose (Fingerstick) 193mg/dL (70-99) 148mg/dL (70-99) White Blood Count 8.7x10^3/uL (4.0-11.0) Red Blood Count 2.99x10^6/uL (4.30-5.70) Hemoglobin 10.3g/dL (13.0-17.5) Hematocrit 31.0% (39.0-53.0) Mean Corpuscular Volume 104fL (79-100) Mean Corpuscular Hemoglobin 35pg (25-35) Mean Corpuscular Hemoglobin Concent 33g/dL (31-37) Red Cell Distribution Width 14.9% (11.5-14.5) Platelet Count 151x10^3/uL (140-400) Neutrophils (%) (Auto) 53% (31-73) Lymphocytes (%) (Auto) 30% (24-48) Monocytes (%) (Auto) 15% (0-9) Eosinophils (%) (Auto) 2% (0-3) Basophils (%) (Auto) 1% (0-3) Neutrophils # (Auto) 4.6x10^3uL (1.8-7.7) Lymphocytes # (Auto) 2.6x10^3/uL (1.0-4.8) Monocytes # (Auto) 1.3x10^3/uL (0.0-1.1) Eosinophils # (Auto) 0.2x10^3/uL (0.0-0.7) Basophils # (Auto) 0.1x10^3/uL (0.0-0.2) Test 02/14/17 07:51 02/14/17 11:19 Glucose (Fingerstick) 147mg/dL (70-99) 147mg/dL (70-99) Assessment and Plan Assessmemt and Plan Problems Medical Problems: (1) GI bleed Status: Acute Problems: Comment Review of Relevant I have reviewed the following items sandie (where applicable) has been applied. Labs Laboratory Tests Test 02/12/17 16:58 02/12/17 21:43 02/13/17 03:00 02/13/17 08:03 Glucose (Fingerstick) 134mg/dL (70-99) 133mg/dL (70-99) 97mg/dL (70-99) White Blood Count 8.5x10^3/uL (4.0-11.0) Red Blood Count 3.14x10^6/uL (4.30-5.70) Hemoglobin 10.7g/dL (13.0-17.5) Hematocrit 32.8% (39.0-53.0) Mean Corpuscular Volume 105fL (79-100) Mean Corpuscular Hemoglobin 34pg (25-35) Mean Corpuscular Hemoglobin Concent 33g/dL (31-37) Red Cell Distribution Width 15.0% (11.5-14.5) Platelet Count 162x10^3/uL (140-400) Neutrophils (%) (Auto) 48% (31-73) Lymphocytes (%) (Auto) 32% (24-48) Monocytes (%) (Auto) 17% (0-9) Eosinophils (%) (Auto) 2% (0-3) Basophils (%) (Auto) 1% (0-3) Neutrophils # (Auto) 4.1x10^3uL (1.8-7.7) Lymphocytes # (Auto) 2.7x10^3/uL (1.0-4.8) Monocytes # (Auto) 1.4x10^3/uL (0.0-1.1) Eosinophils # (Auto) 0.2x10^3/uL (0.0-0.7) Basophils # (Auto) 0.1x10^3/uL (0.0-0.2) Test 02/13/17 10:36 02/13/17 15:55 02/13/17 16:33 02/13/17 21:10 Glucose (Fingerstick) 112mg/dL (70-99) 193mg/dL (70-99) 148mg/dL (70-99) Ammonia 96mcmol/L (11-34) Test 02/14/17 03:13 02/14/17 07:51 02/14/17 11:19 White Blood Count 8.7x10^3/uL (4.0-11.0) Red Blood Count 2.99x10^6/uL (4.30-5.70) Hemoglobin 10.3g/dL (13.0-17.5) Hematocrit 31.0% (39.0-53.0) Mean Corpuscular Volume 104fL (79-100) Mean Corpuscular Hemoglobin 35pg (25-35) Mean Corpuscular Hemoglobin Concent 33g/dL (31-37) Red Cell Distribution Width 14.9% (11.5-14.5) Platelet Count 151x10^3/uL (140-400) Neutrophils (%) (Auto) 53% (31-73) Lymphocytes (%) (Auto) 30% (24-48) Monocytes (%) (Auto) 15% (0-9) Eosinophils (%) (Auto) 2% (0-3) Basophils (%) (Auto) 1% (0-3) Neutrophils # (Auto) 4.6x10^3uL (1.8-7.7) Lymphocytes # (Auto) 2.6x10^3/uL (1.0-4.8) Monocytes # (Auto) 1.3x10^3/uL (0.0-1.1) Eosinophils # (Auto) 0.2x10^3/uL (0.0-0.7) Basophils # (Auto) 0.1x10^3/uL (0.0-0.2) Glucose (Fingerstick) 147mg/dL (70-99) 147mg/dL (70-99) Laboratory Tests Test 02/13/17 15:55 02/13/17 16:33 02/13/17 21:10 02/14/17 03:13 Ammonia 96mcmol/L (11-34) Glucose (Fingerstick) 193mg/dL (70-99) 148mg/dL (70-99) White Blood Count 8.7x10^3/uL (4.0-11.0) Red Blood Count 2.99x10^6/uL (4.30-5.70) Hemoglobin 10.3g/dL (13.0-17.5) Hematocrit 31.0% (39.0-53.0) Mean Corpuscular Volume 104fL (79-100) Mean Corpuscular Hemoglobin 35pg (25-35) Mean Corpuscular Hemoglobin Concent 33g/dL (31-37) Red Cell Distribution Width 14.9% (11.5-14.5) Platelet Count 151x10^3/uL (140-400) Neutrophils (%) (Auto) 53% (31-73) Lymphocytes (%) (Auto) 30% (24-48) Monocytes (%) (Auto) 15% (0-9) Eosinophils (%) (Auto) 2% (0-3) Basophils (%) (Auto) 1% (0-3) Neutrophils # (Auto) 4.6x10^3uL (1.8-7.7) Lymphocytes # (Auto) 2.6x10^3/uL (1.0-4.8) Monocytes # (Auto) 1.3x10^3/uL (0.0-1.1) Eosinophils # (Auto) 0.2x10^3/uL (0.0-0.7) Basophils # (Auto) 0.1x10^3/uL (0.0-0.2) Test 02/14/17 07:51 02/14/17 11:19 Glucose (Fingerstick) 147mg/dL (70-99) 147mg/dL (70-99) Medications Current Medications Pantoprazole Sodium/Sodium Chloride (Protonix Iv/Iv Sodium Chloride 0.9% 100ml) 100 ml @ 10 mls/hr Q10H IV Last administered on 02/10/17 22:45; Start at 12:45; Stop 02/11/17 at 12:13; Status DC Pantoprazole Sodium (Protonix Vial) 80 mg 1X ONCE IVP Last administered on 13:43; Start 02/10/17 at 12:45; Stop 02/10/17 at 12:46; Status DC Iohexol (Omnipaque 300 Mg/ml) 75 ml 1X ONCE IV Last administered on 02/10/17 14:11; Start 02/10/17 at 14:00; Stop 02/10/17 at 14:01; Status DC Info 1 each 1 each PRN DAILY PRN MC SEE COMMENTS; Start 02/10/17 at 14:00; Stop 02/12/17 at 13:59; Status DC Octreotide Acetate/Sodium Chloride (Sandostatin/Iv Sodium Chloride 0.9% 100ml) 101 ml @ 0 mls/hr CONT PRN IV SEE I/O RECORD Last administered on 02/10/17 16: 40; Start 02/10/17 at 15:00; Stop 02/11/17 at 12:13; Status DC Octreotide Acetate 100 mcg 100 mcg 1X ONCE IV Last administered on 02/10/17 16:34; Start 02/10/17 at 15:00; Stop 02/10/17 at 15:10; Status DC Ceftriaxone Sodium (Rocephin 1gm Ivpb For Omni) 50 ml @ 100 mls/hr 1X ONCE IV Last administered on 02/10/17 16:06; Start 02/10/17 at 15:00; Stop 02/10/17 at 15:29; Status DC Ondansetron HCl (Zofran) 4 mg PRN Q8HRS PRN IV NAUSEA/VOMITING; Start 02/10/17 at 15:45; Stop 02/11/17 at 15:44; Status DC Fentanyl Citrate (Fentanyl 2ml Vial) 50 mcg PRN Q1HR PRN IV PAIN; Start at 15:45; Stop 02/11/17 at 15:44; Status DC Albuterol/ Ipratropium (Duoneb) 3 ml RTQID NEB Last administered on 02/11/17 15:19; Start 02/10/17 at 16:00; Stop 02/11/17 at 15:59; Status DC Insulin Aspart (Novolog) 0-5 UNITS TIDWMEALS SQ Last administered on 02/13/17 18:09; Start 02/10/17 at 17:00 Dextrose 12.5 gm 12.5 gm PRN Q15MIN PRN IV SEE COMMENTS; Start 02/10/17 at 15: 45 Lactated Ringer's (Iv Lactated Ringers) 1,000 ml @ 75 mls/hr 1X ONCE IV ; Start 02/11/17 at 10:45; Stop 02/12/17 at 00:04; Status DC Glycopyrrolate 1 mg 1 mg STK-MED ONCE .ROUTE ; Start 02/11/17 at 11:01; Stop at 11:02; Status DC Propofol (Diprivan) 20 ml @ As Directed STK-MED ONCE IV ; Start 02/11/17 at 11: 02; Stop 02/11/17 at 11:03; Status DC Lidocaine HCl (Lidocaine Pf 2% Vial) 5 ml STK-MED ONCE .ROUTE ; Start 02/11/17 at 11:02; Stop 02/11/17 at 11:03; Status DC Lactulose 20 gm 5XDAY PO Last administered on 02/14/17 10:00; Start 02/11/17 at 18:00 Ondansetron HCl (Zofran) 8 mg PRN Q8HRS PRN IV NAUSEA/VOMITING Last administered on 02/11/17 23:55; Start 02/11/17 at 23:45 Acetaminophen (Tylenol) 650 mg PRN Q6HRS PRN PO MILD PAIN / TEMP Last administered on 02/13/17 22:38; Start 02/12/17 at 23:30 Lactulose 20 gm PRN DAILY PRN PO CONSTIPATION; Start 02/13/17 at 17:30 Vitals/I & O Vital Sign - Last 24 Hours 02/13/17 02/13/17 02/13/17 02/13/17 15:00 19:00 20:00 23:00 Temp 98.4 97.9 98.6 98.4 97.9 98.6 Pulse 94 96 Resp 20 20 B/P 159/72 154/72 165/74 O2 Delivery Nasal Cannula Nasal Cannula Nasal Cannula Nasal Cannula O2 Flow Rate 4.0 4.0 4.0 4.0 02/14/17 02/14/17 02/14/17 02/14/17 03:00 07:45 08:00 10:50 Temp 98.2 97.9 97.9 98.2 97.9 97.9 Pulse 94 100 101 Resp 20 20 20 B/P 160/74 156/68 150/60 Pulse Ox 96 96 O2 Delivery Nasal Cannula Nasal Cannula Nasal Cannula Nasal Cannula O2 Flow Rate 4.0 4.0 4.0 4.0 Intake and Output 02/13/17 02/13/17 02/14/17 15:00 23:00 07:00 Intake Total 200 ml 600 ml Output Total 1 ml 300 ml Balance 200 ml 599 ml -300 ml NIK KUMARI MD Feb 14, 2017 14:57
[2017-02-14] MEDS ORDERED: LACT20SO PO (15:20)
[2017-02-14] MEDS ORDERED: PHYTONADIONE (VIT K1) 5 MG TABLET PO ONE (15:30)
[2017-02-14 15:45] VITALS: BP 129/60
[2017-02-15 12:19] LABS: MITOCHONDRIAL ABDY 5.5 Units (0.0-20.0)
== END 2017-02-14 18:00 | DRG 377 ==
LOC: ER 11:11 → ED HOLD 15:05 → 5 NORTH 18:04
PROVIDERS: ADMIT Internal Medicine; ATTEND Internal Medicine
PROC: 0DJ08ZZ Inspection of Upper Intestinal Tract, Via Natural or Artificial Opening Endoscopic (ICD-10-PCS; principal; 2017-02-11 11:30)
DX: K92.2 Gastrointestinal hemorrhage, unspecified (principal); G93.40 Encephalopathy, unspecified; J96.10 Chronic respiratory failure, unspecified whether with hypoxia or hypercapnia; Z68.42 Body mass index [BMI] 45.0-49.9, adult; C85.90 Non-Hodgkin lymphoma, unspecified, unspecified site; K76.6 Portal hypertension; J44.9 Chronic obstructive pulmonary disease, unspecified; D64.9 Anemia, unspecified; E11.9 Type 2 diabetes mellitus without complications; E66.01 Morbid (severe) obesity due to excess calories; I10 Essential (primary) hypertension; F32.9 Major depressive disorder, single episode, unspecified; K29.70 Gastritis, unspecified, without bleeding; I25.10 Atherosclerotic heart disease of native coronary artery without angina pectoris; K21.9 Gastro-esophageal reflux disease without esophagitis; K40.90 Unilateral inguinal hernia, without obstruction or gangrene, not specified as recurrent; L89.90 Pressure ulcer of unspecified site, unspecified stage; Z96.659 Presence of unspecified artificial knee joint; Z82.49 Family history of ischemic heart disease and other diseases of the circulatory system; Z87.891 Personal history of nicotine dependence; Z88.5 Allergy status to narcotic agent; K70.31 Alcoholic cirrhosis of liver with ascites; K29.60 Other gastritis without bleeding; K64.4 Residual hemorrhoidal skin tags
CPT/HCPCS: 36415; 71010; 74177; 80053; 80074; 82105; 82140; 82274; 82607; 82746; 82947; 83010; 83520; 83540; 83550; 83605; 84484; 85018; 85027; 85045; 85610; 85730; 86850; 86900; 86901; 93005; 94250; 94640; 94760; 96365; 96375; C9113; J0690; J1815; J2354; J2405; J2704; J7620; Q9967; 83516; 97530; 97535; 99285-25